=== PATIENT | female | born 1955 | race Caucasian/White ===

== ENCOUNTER 2020-02-01 14:28 | Outpatient (CLI) | payer BC, SELFPAY ==
--- NOTE | ~2020-02-01 | MM_ITS ---
EXAMINATION: MM screening yanely BI w berna HISTORY: Screening mammogram, family history of breast cancer in her sister. TECHNIQUE: Craniocaudal and mediolateral oblique 3-D tomosynthesis images were obtained and synthetic 2-D images were generated. CAD analysis was submitted and interpreted. COMPARISON: 01/13/2019, 12/31/2017, 12/26/2016 BREAST PARENCHYMAL COMPOSITION: There are scattered areas of fibroglandular density. FINDINGS: There is no evidence of suspicious mass, calcification, or architectural distortion to sugg est malignancy in either breast. There has been no suspicious interval change. IMPRESSION: 1. No mammographic evidence of malignancy. 2. Recommend routine screening mammography in one year. BI-RADS Category 1: Negative Reviewed, dictated and finalized at location A. 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
== END 2020-02-01 14:29 | disposition home or self-care (01) ==
LOC: ANHIMG 14:31
PROVIDERS: PCP Physician Assistant; Visit Provider Physician Assistant
DX: Z12.31 Encounter for screening mammogram for malignant neoplasm of breast (principal)
CPT/HCPCS: 77063; 77067

== ENCOUNTER 2021-03-14 16:40 | Outpatient (CLI) | payer OTHER, SELFPAY ==
--- NOTE | ~2021-03-14 | MM_ITS ---
EXAMINATION: MM screening yanely BI w berna HISTORY: Screening mammogram, family history of breast cancer in her sister. TECHNIQUE: Craniocaudal and mediolateral oblique 3-D tomosynthesis images were obtained and synthetic 2-D images were generated. CAD analysis was submitted and interpreted. COMPARISON: 02/01/2020, 01/13/2019, 12/31/2017 BREAST PARENCHYMAL COMPOSITION: There are scattered areas of fibroglandular density. FINDINGS: There is no evidence of suspicious mass, calcification, or architectural distortion to sugg est malignancy in either breast. There has been no suspicious interval change. IMPRESSION: 1. No mammographic evidence of malignancy. 2. Recommend routine screening mammography in one year. BI-RADS Category 1: Negative Reviewed, dictated and finalized at location A. 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
== END 2021-03-14 16:41 | disposition home or self-care (01) ==
DX: Z12.31 Encounter for screening mammogram for malignant neoplasm of breast (principal)
CPT/HCPCS: 77063; 77067

== ENCOUNTER 2021-07-26 00:52 | Day surgery (SDC) | payer OTHER, SELFPAY ==
[2021-07-09 15:00] VITALS: BMI 27.8
--- NOTE | 2021-07-26 11:18 | PM.HPGS ---
History of Present Illness History of Present Illness Consent: Risks, benefits, and alternatives have been discussed and questions answered. Patient agrees to proceed with procedure. Chief complaint: neoplasm screening Narrative: Lelia Elise is a 66 year old female Who is referred for colon cancer screening. She also has gastroesophageal reflux symptoms, with burning it begins in the epigastric area and comes up her chest. This is usually after meal. She has been taking a PPI which has helped but she stopped it so that we could examine her digestive tract without the medication on board. She had a CT scan that showed gallstones. Review of Systems Review of Systems: All systems reviewed & are unremarkable except as noted in HPI and below PMFSH Past Medical History Medical History Hypothyroidism Overweight Surgical History Surgical History H/O laparoscopy H/O lumbosacral spine surgery Social History Social History Smoking status: Never smoker Alcohol intake: never Substance use: never Substance use type: does not use Living arrangements: alone Spiritual care concerns: No Meds Home Medications and Allergies Home Medications Medication Instructions Recorded Confirmed Type cholecalciferol (vitamin D3) 125 125 mcg PO DAILY 07/02/21 07/09/21 History mcg (5,000 unit) capsule naproxen sodium 220 mg capsule 220 mg PO BID PRN 07/02/21 07/09/21 History turmeric (bulk) 95 % powder 1 ea MISCELLANEOUS DAILY PRN 07/02/21 07/09/21 History zinc gluconate 50 mg tablet 50 mg PO DAILY 07/02/21 07/09/21 History estradiol 1 packet TOPICAL DAILY 07/09/21 07/09/21 History levothyroxine 50 mcg PO DAILY 07/09/21 07/09/21 History Allergies Allergy/AdvReac Type Severity Reaction Status Date / Time codeine Allergy Unknown Unknown Verified 07/26/21 11:35 Exam Const: General: alert Orientation/consciousness: patient oriented x3 Resp: Auscultation: clear to auscultation bilaterally Cardio: Rhythm: regular rhythm GI: GI Palp: Yes Soft to palpation and No Tenderness to palpation present (GI) Neuro: General: patient oriented x3 Assessment and Plan Assessment and plan (1) Encounter for colorectal cancer screening: Code(s): Z12.11 - Encounter for screening for malignant neoplasm of colon; Z12.12 - Encounter for screening for malignant neoplasm of rectum Status: Acute Assessment and Plan: Colonoscopy with possible biopsy or polypectomy or cautery or injection of substances. (2) GERD (gastroesophageal reflux disease): Code(s): K21.9 - Gastro-esophageal reflux disease without esophagitis Status: Acute Assessment and Plan: EGD with possible biopsy or dilatation or cautery.
--- NOTE | 2021-07-26 11:27 | WPDANESEPPF ---
Anes - Initial Pre Proc Eval Procedure: Operation Date: 07/26/21 12:30 Proposed Procedures p Esophagogastroduodenoscopy & Screening Colonoscopy - Alex Gerber MD Date/Time: 07/26/21 11:27 Surgeon: Alex Gerber MD Pre Op Diagnosis: neoplasm screening Patient Data Age: 66 Gender: F Height: 1.63 m Weight: 73.5 kg Allergies Allergy/AdvReac Type Severity Reaction Status Date / Time codeine Allergy Unknown Unknown Verified 07/09/21 15:17 Home Medications Medication Instructions Recorded Confirmed Type cholecalciferol (vitamin D3) 125 125 mcg PO DAILY 07/02/21 07/09/21 History mcg (5,000 unit) capsule naproxen sodium 220 mg capsule 220 mg PO BID PRN 07/02/21 07/09/21 History turmeric (bulk) 95 % powder 1 ea MISCELLANEOUS DAILY PRN 07/02/21 07/09/21 History zinc gluconate 50 mg tablet 50 mg PO DAILY 07/02/21 07/09/21 History estradiol 1 packet TOPICAL DAILY 07/09/21 07/09/21 History levothyroxine 50 mcg PO DAILY 07/09/21 07/09/21 History Patient hx anesthesia problems: none Family hx anesthesia problems: none Results Review: All pre-operative results and documents have been reviewed as part of the pre-operative evaluation. [facility] Past Medical History Medical History (Updated 07/26/21 @ 11:27 by Pawel Olivares MD) Hypothyroidism Overweight Surgical History Surgical History (Updated 07/26/21 @ 11:28 by Pawel Olivares MD) H/O laparoscopy H/O lumbosacral spine surgery Social History Social History Smoking status: Never smoker Alcohol intake: never Substance use: never Substance use type: does not use Living arrangements: alone Spiritual care concerns: No Anes - Eval Final PreProcedure Day of Procedure 07/26/21 11:27 Patient weight: overweight Heart: regular rate and rhythm Lungs: clear to auscultation Airway: Mallampati scale class II Neurological: alert and oriented Last oral intake: >/= 8 hours ASA classification: II Emergent: no Anesthetic plan: proceed Anesthesia type and monitoring: general GIVS and standard monitoring Results Review: All pre-operative results and documents have been reviewed as part of the pre-operative evaluation. Informed Consent: The patient's anesthetic plan and its attendant risks and benefits were discussed with the patient/family/POA. Questions were solicited and answers provided to the satisfaction of the patient/family/POA.
[2021-07-26 11:37] VITALS: BP 124/61; PULSE 82; RESP 18; TEMP 36.1; O2SAT 99
[2021-07-26] MEDS: LACTATED RINGERS 1,000 ML 150 ML IV CONT (11:38)
--- NOTE | 2021-07-26 12:32 | SUR.OPER ---
EGD: [id number] COLON: [id number]
[2021-07-26 13:02] VITALS: BP 102/65; PULSE 83; RESP 18; O2SAT 99
[2021-07-26 13:12] VITALS: BP 117/79; PULSE 75; RESP 20; O2SAT 94
[2021-07-26 13:50] VITALS: BP 108/63; PULSE 77; RESP 21; O2SAT 98
--- NOTE | 2021-07-26 13:52 | SUR.PHASEII ---
Dr. Gerber notified that hpylori test result was positive on 07/26/21 at 1352 by Amparo Leslie RN
== END 2021-07-26 13:53 | disposition home or self-care (01) ==
PROVIDERS: Visit Provider Internal Medicine Gastroenterology
PROC: 0DJ08ZZ Inspection of Upper Intestinal Tract, Via Natural or Artificial Opening Endoscopic (ICD-10-PCS; CPT 43235; principal; 2021-07-26 12:30)
DX: Z12.11 Encounter for screening for malignant neoplasm of colon (principal); K21.00 Gastro-esophageal reflux disease with esophagitis, without bleeding; K25.9 Gastric ulcer, unspecified as acute or chronic, without hemorrhage or perforation; B96.81 Helicobacter pylori [H. pylori] as the cause of diseases classified elsewhere; E03.9 Hypothyroidism, unspecified
CPT/HCPCS: 45378; 43239; 87081; 88305; 88342; J2704; J7120

== ENCOUNTER 2021-11-07 11:09 | Day surgery (SDC) | payer OTHER, SELFPAY ==
[2021-10-24 13:44] VITALS: BMI 27.3
--- NOTE | 2021-11-06 12:19 | WPDANESEPPF ---
Anes - Initial Pre Proc Eval Procedure: Operation Date: 11/07/21 13:00 Proposed Procedures p Esophagogastroduodenoscopy - Alex Gerber MD Date/Time: 11/06/21 12:19 Surgeon: Alex Gerber MD Pre Op Diagnosis: Gastric Ulcer and Esophagitis Patient Data Age: 66 Gender: F Height: 1.6 m Weight: 70 kg Allergies Allergy/AdvReac Type Severity Reaction Status Date / Time codeine Allergy Severe Hives Verified 11/07/21 11:41 Home Medications Medication Instructions Recorded Confirmed Type cholecalciferol (vitamin D3) 125 125 mcg PO DAILY 07/02/21 10/24/21 History mcg (5,000 unit) capsule naproxen sodium 220 mg capsule 220 mg PO BID PRN Muscle Pain 07/02/21 11/07/21 History (Aleve) turmeric (bulk) 95 % powder 1 ea miscellaneous DAILY PRN 07/02/21 10/24/21 History (Curcumin) Muscle Pain zinc gluconate 50 mg tablet 50 mg PO DAILY 07/02/21 10/24/21 History estradiol 1.25 mg/1.25 gram (0.1 1 packet topical DAILY 07/09/21 10/24/21 History %) transdermal gel packet levothyroxine 50 mcg tablet 50 mcg PO DAILY 07/09/21 10/24/21 History omeprazole 40 mg capsule,delayed 40 mg PO BID #60 caps 07/26/21 10/24/21 Rx release Patient hx anesthesia problems: none Family hx anesthesia problems: none Results Review: All pre-operative results and documents have been reviewed as part of the pre-operative evaluation. [facility] Past Medical History Medical History (Updated 11/06/21 @ 16:42 by Alex Gerber MD) GERD (gastroesophageal reflux disease) Hypothyroidism Osteoarthritis Overweight Surgical History Surgical History (Updated 11/06/21 @ 12:19 by Stanton Castillo DO) H/O laparoscopy H/O lumbosacral spine surgery History of tubal ligation Social History Social History Smoking status: Never smoker Alcohol intake: never Substance use: never Substance use type: does not use Living arrangements: alone Spiritual care concerns: No Anes - Eval Final PreProcedure Day of Procedure 11/06/21 12:19 Patient weight: overweight Heart: regular rate and rhythm Lungs: clear to auscultation Airway: Mallampati scale class III Neurological: alert and oriented Last oral intake: >/= 8 hours ASA classification: II Emergent: no Anesthetic plan: proceed Anesthesia type and monitoring: general GIVS and standard monitoring Results Review: All pre-operative results and documents have been reviewed as part of the pre-operative evaluation. Informed Consent: The patient's anesthetic plan and its attendant risks and benefits were discussed with the patient/family/POA. Questions were solicited and answers provided to the satisfaction of the patient/family/POA.
--- NOTE | 2021-11-06 16:41 | PM.HPGS ---
History of Present Illness History of Present Illness Consent: Risks, benefits, and alternatives have been discussed and questions answered. Patient agrees to proceed with procedure. Chief complaint: Gastric Ulcer and Esophagitis Narrative: Lelia Elise is a 66 year old female here for follow-up of ulcers. In July of this year she was found to have multiple gastric ulcers and ulcerations and erosions in the distal esophagus. She has been taking omeprazole 40 mg twice a day. Review of Systems Review of Systems: All systems reviewed & are unremarkable except as noted in HPI and below PMFSH Past Medical History Medical History GERD (gastroesophageal reflux disease) Hypothyroidism Osteoarthritis Overweight Surgical History Surgical History H/O laparoscopy H/O lumbosacral spine surgery History of tubal ligation Social History Social History Smoking status: Never smoker Alcohol intake: never Substance use: never Substance use type: does not use Living arrangements: alone Spiritual care concerns: No Meds Home Medications and Allergies Home Medications Medication Instructions Recorded Confirmed Type cholecalciferol (vitamin D3) 125 125 mcg PO DAILY 07/02/21 10/24/21 History mcg (5,000 unit) capsule naproxen sodium 220 mg capsule 220 mg PO BID PRN Muscle Pain 07/02/21 11/07/21 History (Aleve) turmeric (bulk) 95 % powder 1 ea miscellaneous DAILY PRN 07/02/21 10/24/21 History (Curcumin) Muscle Pain zinc gluconate 50 mg tablet 50 mg PO DAILY 07/02/21 10/24/21 History estradiol 1.25 mg/1.25 gram (0.1 1 packet topical DAILY 07/09/21 10/24/21 History %) transdermal gel packet levothyroxine 50 mcg tablet 50 mcg PO DAILY 07/09/21 10/24/21 History omeprazole 40 mg capsule,delayed 40 mg PO BID #60 caps 07/26/21 10/24/21 Rx release Allergies Allergy/AdvReac Type Severity Reaction Status Date / Time codeine Allergy Severe Hives Verified 11/07/21 11:41 Exam Const: General: alert Orientation/consciousness: patient oriented x3 Resp: Auscultation: clear to auscultation bilaterally Cardio: Rhythm: regular rhythm GI: GI Palp: Yes Soft to palpation and No Tenderness to palpation present (GI) Neuro: General: patient oriented x3 Assessment and Plan Assessment and plan (1) Gastric ulcer: Code(s): K25.9 - Gastric ulcer, unspecified as acute or chronic, without hemorrhage or perforation Status: Acute Assessment and Plan: EGD with possible biopsy or dilatation or cautery.
[2021-11-07 11:48] VITALS: BP 134/93; PULSE 67; RESP 16; TEMP 37.1; O2SAT 99; BMI 29.0
[2021-11-07] MEDS: LACTATED RINGERS 1,000 ML 150 ML IV CONT (12:03)
[2021-11-07 13:16] VITALS: BP 106/73; PULSE 71; RESP 16; O2SAT 99
[2021-11-07 13:26] VITALS: BP 124/77; PULSE 77; RESP 16; O2SAT 96
[2021-11-07 13:36] VITALS: BP 136/87; PULSE 79; RESP 20; O2SAT 98
--- NOTE | 2021-11-07 14:38 | WPDANESPN ---
Anes - Prog Note Post-Op Date/Time: 11/07/21 14:38 Cardiovascular status: normal Respiratory status: normal Airway patency: baseline Mental status: baseline Post-Op hydration status: normal Vital Signs: Last Vital Signs Temp 37.1 C 11/07/21 11:48 Pulse 79 11/07/21 13:36 Resp 20 11/07/21 13:36 BP 136/87 11/07/21 13:36 Pulse Ox 98 11/07/21 13:36 O2 Del Method Room Air 11/07/21 13:36 Pain Score (VAS): 0 I/O: Intake & Output 11/06/21 11/07/21 11/07/21 23:59 07:59 15:59 Intake Total 400 Balance 400 Post-procedural complaints: none Patient Feedback: Patient satisfied with anesthetic care. Other Findings: Patient vital signs back to baseline. Patient denies nausea and vomiting. Patient's pain under control. Patient OK for discharge.
== END 2021-11-07 13:50 | disposition home or self-care (01) ==
PROVIDERS: Visit Provider Internal Medicine Gastroenterology
PROC: 0DJ08ZZ Inspection of Upper Intestinal Tract, Via Natural or Artificial Opening Endoscopic (ICD-10-PCS; CPT 43235; principal; 2021-11-07 13:00)
DX: K25.9 Gastric ulcer, unspecified as acute or chronic, without hemorrhage or perforation (principal)
CPT/HCPCS: 43235

== ENCOUNTER 2022-03-18 16:21 | Outpatient (CLI) | payer OTHER, SELFPAY ==
--- NOTE | ~2022-03-18 | MM_ITS ---
EXAMINATION: MM screening yanely BI w berna HISTORY: Screening mammogram, family history of breast cancer in her sister. TECHNIQUE: Craniocaudal and mediolateral oblique 3-D tomosynthesis images were obtained and synthetic 2-D images were generated. CAD analysis was submitted and interpreted. COMPARISON: 03/14/2021, 02/01/2020, 01/13/2019 BREAST PARENCHYMAL COMPOSITION: There are scattered areas of fibroglandular density. FINDINGS: No suspicious mass, calcification, or architectural distortion are identified in either jaclyn ast to suggest malignancy. There has been no suspicious interval change. IMPRESSION: 1. No mammographic evidence of malignancy. 2. Recommend routine screening mammography in one year. BI-RADS Category 1: Negative Reviewed, dictated and finalized at location A. 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
== END 2022-03-18 16:22 | disposition home or self-care (01) ==
DX: Z12.31 Encounter for screening mammogram for malignant neoplasm of breast (principal)
CPT/HCPCS: 77063; 77067

== ENCOUNTER → 2022-11-03 11:10 | Outpatient (CLI) | payer MEDICARE, OTHER, SELFPAY ==
--- NOTE | ~2022-11-03 | US_ITS ---
EXAMINATION: US pelvic complete DATE: 11/03/2022 11:47 INDICATION: Hormone replacement therapy. Estrogen therapy.. Comparison:No prior studies for comparison. TECHNIQUE: Multiple transabdominal and endovaginal sonographic images of the pelvis performed. FINDINGS: The uterus measures 8.7 x 4.1 x 5 cm. The endometrial complex measures 5 mm. The right ovary measures 1.7 x 1.9 x 0.9 cm and the left ovary measures 2.7 x 2.4 x 1.1 cm. There ar e small follicles in each ovary. Normal doppler signal in both ovaries. There is no free fluid in the pelvis. There are no abnormal masses seen on either side. IMPRESSION: 1. Unremarkable pelvic ultrasound. Reviewed, dictated and finalized at location B.
== END ==
PROVIDERS: PCP Advanced Practice Midwife; Visit Provider Advanced Practice Midwife
DX: Z79.890 Hormone replacement therapy (principal)
CPT/HCPCS: 76856

== ENCOUNTER 2023-01-30 00:41 | Day surgery (SDC) | payer MEDICARE, OTHER, SELFPAY ==
[2023-01-23 14:53] VITALS: BMI 28.3
--- NOTE | 2023-01-23 14:58 | PC.NURSE ---
Report to the Outpatient Waiting Room, entrance under the green pavilion located off [facility], at time _0830_ on date _[id number]_. Planned Procedure Time: _1030_. Time changes happen often and if your time is changed the preop area will call you the afternoon before. - You and your visitor will be asked to self-screen and do not enter if you have any COVID symptoms. - A mask is optional within the hospital at this time. Patients may have clear liquids (water, carbonated beverages, clear teas, apple juice) until 3 hours prior to surgery with a maximum of 20 ounces. - No food from midnight until time of surgery Take the following medications with a SIP of water the morning of surgery: ___Levothyroxine DO NOT STOP ANY OF YOUR OTHER PRESCRIPTION MEDICATIONS PRIOR TO SURGERY ?EXCEPT THE FOLLOWING Medications to discontinue per physician All vitamins and supplements Date to take last [id number] Please no make-up, nail french, hairspray, perfume, deodorant, or body powder the day of surgery. No jewelry (including any body piercings) or valuables the day of surgery, leave them at home. Please take a shower or bath the night before, or the morning of, surgery with an antibacterial soap. Wear comfortable, loose fitting clothing. - Jewelry must be removed prior to entering the operating room. Rings and piercings that are not removed may be cut off. - The hospital will not accept responsibility for valuables. - Please leave all valuables, including medications, at home the day of surgery. If you are going home after surgery, a licensed deliver driver must drive you home. - NO public transportation without another adult if you receive anesthesia. - We recommend that an adult stay with you for 24 hours following discharge. - We also recommend that you do not drive, make important decision, drink alcoholic beverages, or take any drugs that were not prescribed by your health care provider for at least 24 hours after your discharge time. Follow any additional instructions given to you from your surgeon. If you or anyone in your household have experienced Covid symptoms in the past week, please notify your surgeon or the nurse liaison at the phone number below for possible testing. Telephone instructions given to __Lelia__and asked if any additional questions and then verbalized understanding. Patient advised to call surgeon office or pre surgery nurse liaison [phone] if any additional questions.
--- NOTE | 2023-01-29 12:44 | PM.IMHP ---
H&P: HPI History of Present Illness Date/Time: 01/29/23 12:44 Chief Complaint: Thickened endometrial stripe Narrative: Patient is a 67-year-old female who was on hormone replacement therapy with unopposed estrogen and findings of a mildly thickened endometrial stripe. Unable to perform office endometrial biopsy due to stenotic os. Patient opted for D and C hysteroscopy. Review of Systems Review of Systems: All systems reviewed & are unremarkable except as noted in HPI and below Cardiovascular: Cardiovascular: Reports no additional cardiovascular complaints, Denies chest pain and Denies dyspnea Respiratory: Respiratory: Reports no additional respiratory complaints and Denies dyspnea Gastrointestinal: Gastrointestinal: Reports abdominal pain, Denies change in bowel habits, Denies diarrhea, Denies nausea and Denies vomiting Genitourinary: Genitourinary: Reports pelvic pain Musculoskeletal: Musculoskeletal: Reports back pain Integumentary/Breasts: Skin/Breast: Reports system reviewed and no additional complaints, except as docu Neurologic: Reports system reviewed and no additional complaints, except as documented PMFSH Past Medical History Medical History GERD (gastroesophageal reflux disease) Hypothyroidism Osteoarthritis Overweight Surgical History Surgical History H/O laparoscopy H/O lumbosacral spine surgery History of tubal ligation Family History Family History Sibling Diabetes mellitus Breast cancer Social History Social History Smoking status: Never smoker Alcohol intake: never Substance use: never Substance use type: does not use Lack of Transportation: No Lack of Food: Never True Current Housing: I Have Housing Concerned About Future Housing: No Difficulty Paying Gas/Electric Bills: No Difficulty Paying for Meds: No Currently Unemployed: No Difficulty w/ Childcare or Family Care: No Living arrangements: with family Gender identity (if verbalized by the patient): Female Sexual Orientation (if Verbalized by the Patient): Straight or Heterosexual Spiritual care concerns: No Meds Home Medications and Allergies Home Medications Medication Instructions Recorded Confirmed Type cholecalciferol (vitamin D3) 125 125 mcg PO DAILY 07/02/21 01/23/23 History mcg (5,000 unit) capsule naproxen sodium 220 mg capsule 220 mg PO BID PRN Muscle Pain 07/02/21 01/23/23 History (Aleve) turmeric (bulk) 95 % powder 1 ea miscellaneous DAILY PRN 07/02/21 01/23/23 History (Curcumin) Muscle Pain zinc gluconate 50 mg tablet 50 mg PO DAILY 07/02/21 01/23/23 History estradiol 1.25 mg/1.25 gram (0.1 1 packet topical DAILY 07/09/21 01/23/23 History %) transdermal gel packet levothyroxine 50 mcg tablet 50 mcg PO DAILY 07/09/21 01/23/23 History omeprazole 40 mg capsule,delayed 40 mg PO DAILY #90 caps 11/24/22 01/23/23 Rx release Allergies Allergy/AdvReac Type Severity Reaction Status Date / Time codeine Allergy Severe Hives Verified 01/23/23 14:52 Exam Const: Orientation/consciousness: oriented to person and oriented to place HENMT: Head: normal to inspection Eyes: General: appearance normal, both eyes and all related structures Resp: Effort & Inspection: normal respiratory effort Auscultation: clear to auscultation bilaterally Cardio: Rate: regular rate Rhythm: regular rhythm GI: Inspection: normal to inspection GI Palp: No Rebound tenderness present Neuro: General: oriented to person and oriented to place Cognition (Neuro): normal cognition Extrem: General: normal to inspection Psych: Appearance: grossly normal and well kempt Assessment and Plan Assessment and plan (1) Thickened endometrium: Code(s): R93.89 - A
[2023-01-30 09:53] VITALS: BP 116/80; PULSE 71; RESP 20; TEMP 36.5; O2SAT 100
--- NOTE | 2023-01-30 10:17 | WPDHPUPDATE1 ---
History and Physical Update Update Date/Time: 01/30/23 10:17 History and Physical has been reviewed, including an updated exam of the patient. There are NO changes in the patient's condition. Risks, benefits, and alternatives have been discussed and questions answered. Patient agrees to proceed with procedure.
--- NOTE | 2023-01-30 10:19 | WPDANESEPPF ---
Anes - Initial Pre Proc Eval Procedure: Operation Date: 01/30/23 11:30 Proposed Procedures p Hysteroscopy Dilation and Curettage Removal of any Endometrial Lesion if Necessary - Hiram Candelario MD Date/Time: 01/30/23 10:19 Surgeon: Hiram Candelario MD Pre Op Diagnosis: thickened endometrial stripe Patient Data Age: 67 Gender: F Height: 1.6 m Weight: 72.7 kg Allergies Allergy/AdvReac Type Severity Reaction Status Date / Time codeine Allergy Severe N/V Verified 01/30/23 09:56 Home Medications Medication Instructions Recorded Confirmed Type cholecalciferol (vitamin D3) 125 125 mcg PO DAILY 07/02/21 01/30/23 History mcg (5,000 unit) capsule naproxen sodium 220 mg capsule 220 mg PO BID PRN Muscle Pain 07/02/21 01/23/23 History (Aleve) turmeric (bulk) 95 % powder 1 ea miscellaneous DAILY PRN 07/02/21 01/30/23 History (Curcumin) Muscle Pain zinc gluconate 50 mg tablet 50 mg PO DAILY 07/02/21 01/30/23 History estradiol 1.25 mg/1.25 gram (0.1 1 packet topical DAILY 07/09/21 01/30/23 History %) transdermal gel packet levothyroxine 50 mcg tablet 50 mcg PO DAILY 07/09/21 01/30/23 History omeprazole 40 mg capsule,delayed 40 mg PO DAILY #90 caps 11/24/22 01/30/23 Rx release Patient hx anesthesia problems: none Family hx anesthesia problems: none Results Review: All pre-operative results and documents have been reviewed as part of the pre-operative evaluation. [facility] Past Medical History Medical History GERD (gastroesophageal reflux disease) Hypothyroidism Osteoarthritis Overweight Surgical History Surgical History H/O laparoscopy H/O lumbosacral spine surgery History of tubal ligation Family History Family History Sibling Diabetes mellitus Breast cancer Social History Social History Smoking status: Never smoker Alcohol intake: never Substance use: never Substance use type: does not use Lack of Transportation: No Lack of Food: Never True Current Housing: I Have Housing Concerned About Future Housing: No Difficulty Paying Gas/Electric Bills: No Difficulty Paying for Meds: No Currently Unemployed: No Difficulty w/ Childcare or Family Care: No Living arrangements: with family Gender identity (if verbalized by the patient): Female Sexual Orientation (if Verbalized by the Patient): Straight or Heterosexual Spiritual care concerns: No Anes - Eval Final PreProcedure Day of Procedure 01/30/23 10:19 Patient weight: overweight Heart: regular rate and rhythm Lungs: clear to auscultation Airway: Mallampati scale class II Neurological: alert and oriented Last oral intake: >/= 8 hours Emergent: no Anesthetic plan: proceed Anesthesia type and monitoring: general GIVS and standard monitoring Results Review: All pre-operative results and documents have been reviewed as part of the pre-operative evaluation. Informed Consent: The patient's anesthetic plan and its attendant risks and benefits were discussed with the patient/family/POA. Questions were solicited and answers provided to the satisfaction of the patient/family/POA.
[2023-01-30] MEDS: LACTATED RINGERS 1,000 ML 30 ML IV CONT (10:20)
[2023-01-30] MEDS: ACETAMINOPHEN 500 MG TABLET 1000 MG PO (10:20)
[2023-01-30] MEDS: ceFAZolin 2 GM/D5W 50 ML 2 GM/50 ML BAG IVPB (10:56)
[2023-01-30] MEDS: LIDOCAINE HCL 1% PF INJ 5 ML VIAL 10 ML INFILTRATE (11:10)
[2023-01-30 11:21] VITALS: BP 112/69; PULSE 68; RESP 17
--- NOTE | 2023-01-30 11:23 | P.OP_ITS ---
Procedure Note - Detailed Date of Procedure 01/30/23 Pre-op Diagnosis thickened endometrial stripe, history of unopposed estrogen use Post-op Diagnosis Same Procedure Performed Hysteroscopy dilation and curettage and sampling of abnormal area in the uterus Surgeon Hiram Candelario MD Anesthesia MAC and Local Indications Thickened endometrial stripe Findings Small area of thickened tissue in the circular shaped at the posterior wall of lower uterine cavity the rest of the tissue and cavity were atrophic. Description of Procedure After form consent was obtained patient was taken to the operating room and ad equate IV sedation was administered. She was placed in high lithotomy position and prepped and draped in sterile fashion. Attention was turned to the vagina. Speculum inserted. Single-tooth tenaculum placed on anterior lip of the cervix. 1% lidocaine was injected at the cervical vaginal interface at 2, 5, 8 and 10 position. The cervix was noted to be very stenotic. The smallest dilator would not dilate the cervix. Several os Finders were then used and the medium os binder was able to enter the cervical canal. A small Macdonald dilator was then inserted further. The hysteroscope was then used for hydro dilation to advance up into the uterine cavity. Most the cavity appeared atrophic. There was a small area or that appear to have thickened circular area at the posterior wall of the lower uterine cavity. The Mindy instrument was used to shave off this area which it did shave it off completely and then a curettage was then performed and there was minimal tissue obtained. The single-tooth tenaculum was removed. Hemostasis was noted. The speculum was removed. The patient tolerated procedure well. Estimated Blood Loss 5 Drains No Packing No Pathology Yes ( Scant endometrial curettings and shavings) Complications No immediate complications Condition Stable Disposition PACU [facility] Billing Surgery - Charge Forward: Surgery Billing
[2023-01-30 11:45] VITALS: BP 132/73; PULSE 75; RESP 17
[2023-01-30 12:15] VITALS: BP 114/70; PULSE 66; RESP 16
[2023-01-30 12:35] VITALS: BP 121/77; PULSE 63; RESP 16
== END 2023-01-30 12:55 | disposition home or self-care (01) ==
PROVIDERS: PCP Advanced Practice Midwife; Visit Provider Obstetrics & Gynecology
PROC: 0U5B8ZZ Destruction of Endometrium, Via Natural or Artificial Opening Endoscopic (ICD-10-PCS; CPT 58563; principal; 2023-01-30 11:30)
DX: N85.01 Benign endometrial hyperplasia (principal); K21.9 Gastro-esophageal reflux disease without esophagitis; E03.9 Hypothyroidism, unspecified
CPT/HCPCS: 58558; 88305; A9270; J0690; J2250; J2704; J3010; J7120

== ENCOUNTER → 2023-03-02 11:57 | Outpatient (CLI) | payer MEDICARE, OTHER, SELFPAY ==
--- NOTE | ~2023-03-02 | DEXA_ITS ---
Bone Density Report Name: NICOLE LEONARDO Age: 67 Sex: Female Ethnicity: White Date of : 1955 Indication: postmenopausal; screening for osteoporosis; Referring Provider: TERRY, PATI Moore Study: Bone densitometry was performed. Exam Date: March 02, 2023 Accession number: [id number] Bone Density: Region BMD T-score Z-score Classification AP Spine (L1-L4) 1.079 0.3 2.1 Normal Femoral Neck (Left) 0.730 -1.1 0.5 Osteopenia Total Hip (Left) 0.896 -0.4 0.9 Normal Femoral Neck (Right) 0.707 -1.3 0.3 Osteopenia Total Hip (Right) 0.826 -0.9 0.3 Normal Total Hip Mean 0.861 -0.7 0.6 Normal World Health Organization criteria for BMD impression classify patients as: Normal (T-score at or above -1.0), Osteopenia (T-score between -1.0 and -2.5), or Osteoporosis (T-score at or below -2.5). 10-year Fracture Risk(1): Major Osteoporotic Fracture 8.4% Hip Fracture 0.8% Reported Risk Factors: [place] (), Neck BMD=0.707, BMI=29.1 (1) FRAX(R) Version 3.08. Fracture probability calculated for an untreated patient. Fracture probability may be lower if the patient has received treatment. Clinical Information Provided by Patient: Has used the following medications: HRT (i.e. estrogen/hormone therapy), Vitamin D, LEVOTHYROXINE Patient maximum height was 63.5 Menopause Age: 57 Onset of menses at age 15 Number of children 2 Impression: The patient has low bone mass, based on the Right Femoral Neck T-score. The patient has an estimated ten-year risk of hip fracture of 0.8% and an estimated ten-year risk of major fracture of 8.4%, based on the WHO FRAX algorithm. Discussion: BONE DENSITY IS LOW AT ONE OR MORE SKELETAL SITES. This patient's lowest T-score is low at one or more skeletal sites. It meets the World Health Organization's (WHO) criteria for ?low bone mass? (T-score between -1.0 and -2.5). The patient's 10-year risk of fracture as calculated by FRAX is less than the threshold where pharmacological therapy is recommended by the National Osteoporosis Foundation (NOF). However, all treatment decisions require clinical judgment and consideration of individual patient factors, including patient preferences, comorbidities, previous drug use, risk factors not captured in the FRAX model (e.g., frailty, falls, vitamin D deficiency, increased bone turnover, interval significant decline in bone density) and possible under or overestimation of fracture risk by FRAX. The patient should follow a healthful lifestyle (good nutrition with adequate calcium and vitamin D, and appropriate weight-bearing exercise). Follow-Up: Consider repeating this study in 2 to 3 years to reassess this patient's status, or sooner if there is some new clinical indication. Reported by: WILIAN on 03/02/2023 12:47:00 PM.
== END ==
PROVIDERS: PCP Advanced Practice Midwife; Visit Provider Advanced Practice Midwife
DX: Z78.0 Asymptomatic menopausal state (principal); M85.852 Other specified disorders of bone density and structure, left thigh; M85.851 Other specified disorders of bone density and structure, right thigh
CPT/HCPCS: 77080

== ENCOUNTER 2023-07-03 10:45 | Outpatient (CLI) | payer MEDICARE, OTHER, SELFPAY ==
--- NOTE | ~2023-07-03 | MM_ITS ---
EXAMINATION: MM screening yanely BI w berna HISTORY: Screening TECHNIQUE: Craniocaudal and mediolateral oblique 3-D tomosynthesis images were obtained and synthetic 2-D images were generated. CAD analysis was submitted and interpreted. COMPARISON: Comparison to multiple prior studies sequentially, with oldest reviewed study dated 01/14. BREAST PARENCHYMAL COMPOSITION: Not dense: There are scattered areas of fibroglandular density. FINDINGS: There is no evidence of suspicious mass, calcification, or architectural distortion to sugg est malignancy in either breast. There has been no suspicious interval change. IMPRESSION: 1. No mammographic evidence of malignancy. 2. Recommend routine screening mammography in one year. BI-RADS Category 1: Negative Reviewed, dictated and finalized at location B.
== END 2023-07-03 10:46 ==
PROVIDERS: PCP Nurse Practitioner Obstetrics & Gynecology; Visit Provider Advanced Practice Midwife
DX: Z12.31 Encounter for screening mammogram for malignant neoplasm of breast (principal)
CPT/HCPCS: 77063; 77067

== ENCOUNTER 2023-07-20 10:15 | Outpatient (CLI) | payer MEDICARE, OTHER, SELFPAY ==
--- NOTE | ~2023-07-20 | US_ITS ---
EXAMINATION: US thyroid DATE: 07/20/2023 10:31 INDICATION: Hypothyroidism. TECHNIQUE: Multiple ultrasound images of the thyroid were obtained. COMPARISON: None. FINDINGS: The right thyroid lobe measures 3.7 x 1.0 x 1.4 cm. The left thyroid lobe measures 4.4 x 1.2 x 1.5 c m. In the left thyroid lobe, there is a 2.2 cm solid, isoechoic, wider than tall nodule with ill-def ined margin without echogenic foci (TI-RADS TR3). IMPRESSION: 1. Left thyroid nodule. Thyroid ultrasound is recommended in one year. Reviewed, dictated and finalized at location A.
== END 2023-07-20 10:16 ==
LOC: MICIMG 10:17
PROVIDERS: PCP Physician Assistant; Visit Provider Physician Assistant
DX: E03.9 Hypothyroidism, unspecified (principal); E04.1 Nontoxic single thyroid nodule
CPT/HCPCS: 76536

== ENCOUNTER 2023-08-26 11:08 | Outpatient (CLI) | payer MEDICARE, OTHER, SELFPAY ==
--- NOTE | ~2023-08-26 | XR_ITS ---
EXAMINATION: XR chest 2V 08/26/2023 11:20 INDICATION: Dyspnea PROCEDURE: 2 view chest COMPARISON: No prior studies for comparison. FINDINGS: The lungs are clear. The cardiomediastinal silhouette is within normal limits. There are no pleural effusions. There is no pneumothorax suspected. IMPRESSION: 1: NO ACUTE CARDIOPULMONARY DISEASE. Reviewed, dictated and finalized at location B.
== END 2023-08-26 11:09 ==
PROVIDERS: PCP Physician Assistant; Visit Provider Physician Assistant
DX: R06.09 Other forms of dyspnea (principal)
CPT/HCPCS: 71046

== ENCOUNTER 2023-09-01 08:15 | Outpatient (CLI) | payer MEDICARE, OTHER, SELFPAY ==
--- NOTE | ~2023-09-01 | US_ITS ---
EXAMINATION: US abdomen complete DATE: 09/01/2023 08:46 INDICATION: Epigastric abdominal pain. TECHNIQUE: Multiple grayscale and Doppler ultrasound images of the abdomen were obtained. COMPARISON: None FINDINGS: The visualized portions of the head and body of the pancreas are normal. The liver is kerry l without focal lesion. There is normal flow in main portal vein. The gallbladder is normal in size c ontains gallstones. No gallbladder wall thickening or sonographic Hidalgo sign. The common duct is nor mal and measures 7 mm. The kidneys are normal in size. The spleen is normal in size. Inferior vena ca va is normal. Abdominal aorta is normal in caliber. IMPRESSION: 1. Cholelithiasis. No evidence of acute cholecystitis. Reviewed, dictated and finalized at location E.
--- NOTE | ~2023-09-01 | XR_ITS ---
EXAMINATION: XR UGIAC wo kub DATE: 09/01/2023 09:06 INDICATION: . TECHNIQUE: Thick barium contrast with gas effervescent crystals were administered orally. Fluoroscop ic images of the esophagus, stomach, and proximal duodenum were obtained in various projections. The reafter, overhead images of the abdomen were performed. 55 fluoroscopic images. FINDINGS: Epigastric pain. The esophagus is normal in caliber, without mucosal lesions or strictures. There is normal esophagea l peristalsis. There is a small hiatal hernia. No gastroesophageal reflux witnessed during the cours e of the study. The gastric folds are normal. There is a large amount of debris in the stomach. Debris limits evaluat ion for subtle mucosal abnormalities. The proximal duodenum is also normal in appearance. IMPRESSION: 1. Large amount of debris in the stomach limiting evaluation for mucosal abnormality. 2: Small sliding hiatal hernia. Reviewed, dictated and finalized at location B. IMPRESSION: 1. Large amount of debris in the stomach limiting evaluation for mucosal abnor mality. 2: Small sliding hiatal hernia.
== END 2023-09-01 08:16 ==
LOC: MICIMG 08:21
PROVIDERS: PCP Physician Assistant; Visit Provider Physician Assistant
DX: R10.13 Epigastric pain (principal); R06.09 Other forms of dyspnea
CPT/HCPCS: 74246; 76700

== ENCOUNTER 2023-10-12 07:36 | Outpatient (NON) | payer MEDICARE, OTHER, SELFPAY | END 2023-10-12 07:37 | disposition home or self-care (01) | LOC: ANHLAB 10-13 07:39 | PROVIDERS: PCP Physician Assistant; Visit Provider Internal Medicine Gastroenterology | DX: K52.9 Noninfective gastroenteritis and colitis, unspecified (principal) | CPT/HCPCS: 88305; 88342 ==

== ENCOUNTER 2023-10-12 11:39 | Day surgery (SDC) | payer MEDICARE, OTHER, SELFPAY ==
[2023-09-15 11:12] VITALS: BMI 27.6
[2023-09-29 10:53] VITALS: BMI 28.2
--- NOTE | 2023-10-10 16:47 | PM.HPGS ---
History of Present Illness History of Present Illness Consent: Risks, benefits, and alternatives have been discussed and questions answered. Patient agrees to proceed with procedure. Chief complaint: Epigastric Pain Narrative: Lelia Elise is a 68 year old female with lngstanding reeflux symptoms, on Omeprazole 40 mg/day. Two years ago she was found have erosive esophagitis and multiple superficial gastric ulcers. Now she has pain in the epigastric area which lasts for several days. she has also been found to have gallstones. Review of Systems Review of Systems: All systems reviewed & are unremarkable except as noted in HPI and below PMFSH Past Medical History Medical History GERD (gastroesophageal reflux disease) Hypothyroidism Osteoarthritis Overweight Surgical History Surgical History H/O laparoscopy H/O lumbosacral spine surgery History of hysteroscopy (~01/30/23) HSC D&C. For thickened endometrium. Path c/w complex hyperplasia without atypia. Dr Candelario History of tubal ligation Family History Family History Sibling Diabetes mellitus Breast cancer Social History Social History Smoking status: Never smoker Alcohol intake: never Substance use: never Substance use type: does not use Lack of Transportation: No Lack of Food: Never True Current Housing: I Have Housing Concerned About Future Housing: No Difficulty Paying Gas/Electric Bills: No Difficulty Paying for Meds: No Currently Unemployed: No Difficulty w/ Childcare or Family Care: No Living arrangements: alone Gender identity (if verbalized by the patient): Female Sexual Orientation (if Verbalized by the Patient): Straight or Heterosexual Spiritual care concerns: No Meds Home Medications and Allergies Home Medications Medication Instructions Recorded Confirmed Type cholecalciferol (vitamin D3) 125 125 mcg PO DAILY 07/02/21 10/12/23 History mcg (5,000 unit) capsule naproxen sodium 220 mg capsule 220 mg PO BID PRN Muscle Pain 07/02/21 10/12/23 History (Aleve) turmeric (bulk) 95 % powder 1 ea miscellaneous DAILY PRN 07/02/21 10/12/23 History (Curcumin) Muscle Pain zinc gluconate 50 mg tablet 50 mg PO DAILY 07/02/21 10/12/23 History estradiol 1.25 mg/1.25 gram (0.1 1 packet topical DAILY 07/09/21 10/12/23 History %) transdermal gel packet levothyroxine 50 mcg tablet 50 mcg PO DAILY 07/09/21 10/12/23 History omeprazole 40 mg capsule,delayed 40 mg PO DAILY #90 caps 11/24/22 10/12/23 Rx release medroxyprogesterone 10 mg tablet 10 mg PO DAILY 09/29/23 10/12/23 History Allergies Allergy/AdvReac Type Severity Reaction Status Date / Time codeine Allergy Severe N/V Verified 10/12/23 11:57 Exam Const: General: alert Orientation/consciousness: patient oriented x3 Resp: Auscultation: clear to auscultation bilaterally Cardio: Rhythm: regular rhythm GI: GI Palp: Yes Soft to palpation and No Tenderness to palpation present (GI) Neuro: General: patient oriented x3 Assessment and Plan Assessment and plan (1) GERD (gastroesophageal reflux disease): Code(s): K21.9 - Gastro-esophageal reflux disease without esophagitis Status: Acute Assessment and Plan: EGD with possible biopsy or dilatation or cautery.
[2023-10-12 11:58] VITALS: BP 134/97; PULSE 72; RESP 15; TEMP 37.6; O2SAT 99
[2023-10-12 12:01] VITALS: BMI 27.8
[2023-10-12] MEDS: LACTATED RINGERS 1,000 ML 150 ML IV CONT (12:14)
--- NOTE | 2023-10-12 12:40 | WPDANESEPPF ---
Anes - Initial Pre Proc Eval Procedure: Operation Date: 10/12/23 13:30 Proposed Procedures p Esophagogastroduodenoscopy - Alex Gerber MD Date/Time: 10/12/23 12:40 Surgeon: Alex Gerber MD Pre Op Diagnosis: Epigastric Pain Patient Data Age: 68 Gender: F Height: 1.6 m Weight: 71.4 kg Last Vital Signs Temp 37.6 C H 10/12/23 11:58 Pulse 72 10/12/23 11:58 Resp 15 10/12/23 11:58 BP 134/97 H 10/12/23 11:58 Pulse Ox 99 10/12/23 11:58 O2 Del Method Room Air 10/12/23 11:58 Allergies Allergy/AdvReac Type Severity Reaction Status Date / Time codeine Allergy Severe N/V Verified 10/12/23 11:57 Home Medications Medication Instructions Recorded Confirmed Type cholecalciferol (vitamin D3) 125 125 mcg PO DAILY 07/02/21 10/12/23 History mcg (5,000 unit) capsule naproxen sodium 220 mg capsule 220 mg PO BID PRN Muscle Pain 07/02/21 10/12/23 History (Aleve) turmeric (bulk) 95 % powder 1 ea miscellaneous DAILY PRN 07/02/21 10/12/23 History (Curcumin) Muscle Pain zinc gluconate 50 mg tablet 50 mg PO DAILY 07/02/21 10/12/23 History estradiol 1.25 mg/1.25 gram (0.1 1 packet topical DAILY 07/09/21 10/12/23 History %) transdermal gel packet levothyroxine 50 mcg tablet 50 mcg PO DAILY 07/09/21 10/12/23 History omeprazole 40 mg capsule,delayed 40 mg PO DAILY #90 caps 11/24/22 10/12/23 Rx release medroxyprogesterone 10 mg tablet 10 mg PO DAILY 09/29/23 10/12/23 History Patient hx anesthesia problems: none Family hx anesthesia problems: none Results Review: All pre-operative results and documents have been reviewed as part of the pre-operative evaluation. [facility] Past Medical History Medical History GERD (gastroesophageal reflux disease) Hypothyroidism Osteoarthritis Overweight Surgical History Surgical History H/O laparoscopy H/O lumbosacral spine surgery History of hysteroscopy (~01/30/23) HSC D&C. For thickened endometrium. Path c/w complex hyperplasia without atypia. Dr Candelario History of tubal ligation Family History Family History Sibling Diabetes mellitus Breast cancer Social History Social History Smoking status: Never smoker Alcohol intake: never Substance use: never Substance use type: does not use Lack of Transportation: No Lack of Food: Never True Current Housing: I Have Housing Concerned About Future Housing: No Difficulty Paying Gas/Electric Bills: No Difficulty Paying for Meds: No Currently Unemployed: No Difficulty w/ Childcare or Family Care: No Living arrangements: alone Gender identity (if verbalized by the patient): Female Sexual Orientation (if Verbalized by the Patient): Straight or Heterosexual Spiritual care concerns: No Anes - Eval Final PreProcedure Day of Procedure 10/12/23 12:40 Patient weight: overweight Heart: regular rate and rhythm Lungs: clear to auscultation Airway: Mallampati scale class II Neurological: alert and oriented Last oral intake: >/= 8 hours ASA classification: II Emergent: no Anesthetic plan: proceed Anesthesia type and monitoring: general GIVS and standard monitoring Results Review: All pre-operative results and documents have been reviewed as part of the pre-operative evaluation. Informed Consent: The patient's anesthetic plan and its attendant risks and benefits were discussed with the patient/family/POA. Questions were solicited and answers provided to the satisfaction of the patient/family/POA.
[2023-10-12 12:55] VITALS: BP 105/90; PULSE 76; RESP 16; O2SAT 99
[2023-10-12 13:05] VITALS: BP 121/73; PULSE 81; RESP 18; O2SAT 98
[2023-10-12 13:15] VITALS: BP 125/78; PULSE 64; RESP 20; O2SAT 100
--- NOTE | 2023-10-12 13:22 | WPDANESPN ---
Anes - Prog Note Post-Op Date/Time: 10/12/23 13:22 Cardiovascular status: normal Respiratory status: normal Airway patency: baseline Mental status: baseline Post-Op hydration status: normal Vital Signs: Last Vital Signs Temp 37.6 C H 10/12/23 11:58 Pulse 81 10/12/23 13:05 Resp 18 10/12/23 13:05 BP 121/73 10/12/23 13:05 Pulse Ox 98 10/12/23 13:05 O2 Del Method Room Air 10/12/23 13:05 Pain Score (VAS): 0/10 I/O: Intake & Output 10/11/23 10/12/23 10/12/23 23:59 07:59 15:59 Intake Total 200 Balance 200 Patient Feedback: Patient satisfied with anesthetic care.
--- NOTE | 2023-10-12 13:53 | SUR.PHASEII ---
1330; PT DRESSED AND WAITING FOR RIDE.
== END 2023-10-12 13:43 | disposition home or self-care (01) ==
PROVIDERS: PCP Physician Assistant; Visit Provider Internal Medicine Gastroenterology
PROC: 0DJ08ZZ Inspection of Upper Intestinal Tract, Via Natural or Artificial Opening Endoscopic (ICD-10-PCS; CPT 43235; principal; 2023-10-12 13:30)
DX: K21.9 Gastro-esophageal reflux disease without esophagitis (principal); K29.70 Gastritis, unspecified, without bleeding; K44.9 Diaphragmatic hernia without obstruction or gangrene
CPT/HCPCS: 43239

== ENCOUNTER 2023-10-13 08:57 | Outpatient (CLI) | payer MEDICARE, OTHER, SELFPAY ==
--- NOTE | 2023-10-13 | EST_ITS ---
Patient Info Name: Lelia Elise Age: 68 years : 1955 Gender: Female Ht: 63 in Wt: 158 lbs BSA: 1.81 m2 HR: 72 bpm BP: 146 / 76 mmHg Heart Rhythm: Sinus Rhythm Exam Date: 10/13/2023 9:15 AM Exam Location: Echo Lab Patient Status: Outpatient Admit Date: 10/13/2023 Staff Ordering Physician: YossiAnupama PA-C Domestic Maid: Shahla Burris RDCS Attending Provider: JluisAnupama PA-C Exercise Technologist: Shahla Burris RDCS Exercise Physician: Norman Ellis DO Exam Type: CA stress echo Study Info Indications R06.00 - Dyspnea, unspecified Treadmill exercise stress echocardiogram is performed. Summary 1. 1. Negative Aung exercise stress test for ischemic ST changes by ECG criteria. 2. 2. Good functional capacity, achieving 8.9 METs of workload. 3. 3. Appropriate HR response to exercise. 4. 4. Appropriate HR recovery at 1 minute post exercise. 5. 5. Negative stress echocardiogram for ischemia by wall motion analysis. 6. 6. Patient informed of the above results. Stress Echo Findings Left Ventricle Appropriate increase in LV endocardial thickening with systole. Appropriate augmentation of contractility with systole. No wall motion abnormality. Left Ventricle Normal LV systolic function, no wall motion abnormality. Protocol: Aung Stress ECG Details Stage: REST Duration (min): 0 min : 51 sec Speed (mph): 0.0 Grade (%): 0 HR (bpm): 70 SBP (mmHg): 146 DBP (mmHg): 76 METS: --- Stage: REST Duration (min): 12 min : 48 sec Speed (mph): 0.0 Grade (%): 0 HR (bpm): 86 SBP (mmHg): 146 DBP (mmHg): 76 METS: --- Stage: STAGE 1 Duration (min): 1 min : 0 sec Speed (mph): 1.7 Grade (%): 10 HR (bpm): 102 SBP (mmHg): 146 DBP (mmHg): 76 METS: --- Stage: STAGE 1 Duration (min): 2 min : 0 sec Speed (mph): 1.7 Grade (%): 10 HR (bpm): 109 SBP (mmHg): 146 DBP (mmHg): 76 METS: --- Stage: STAGE 1 Duration (min): 3 min : 0 sec Speed (mph): 1.7 Grade (%): 10 HR (bpm): 109 SBP (mmHg): 169 DBP (mmHg): 76 METS: --- Stage: STAGE 2 Duration (min): 1 min : 0 sec Speed (mph): 2.5 Grade (%): 12 HR (bpm): 119 SBP (mmHg): 169 DBP (mmHg): 76 METS: --- Stage: STAGE 2 Duration (min): 2 min : 0 sec Speed (mph): 2.5 Grade (%): 12 HR (bpm): 122 SBP (mmHg): 156 DBP (mmHg): 76 METS: --- Stage: STAGE 2 Duration (min): 3 min : 0 sec Speed (mph): 2.5 Grade (%): 12 HR (bpm): 125 SBP (mmHg): 156 DBP (mmHg): 76 METS: --- Stage: STAGE 3 Duration (min): 1 min : 0 sec Speed (mph): 3.4 Grade (%): 14 HR (bpm): 134 SBP (mmHg): 154 DBP (mmHg): 79 METS: --- Stage: STAGE 3 Duration (min): 1 min : 1 sec Speed (mph): 0.0 Grade (%): 0 HR (bpm): 134 SBP (mmHg): 154 DBP (mmHg): 79 METS: --- Stage: RECOVERY Duration (min): 0 min : 58 sec Speed (mph): 0.0 Grade (%): 0 HR (bpm): 104 SBP (mmHg): 154 DBP (mmHg): 79 METS: ---
== END 2023-10-13 08:58 | disposition home or self-care (01) ==
LOC: ANHCARD 08:58
PROVIDERS: PCP Physician Assistant; Visit Provider Physician Assistant
DX: R06.09 Other forms of dyspnea (principal)
CPT/HCPCS: 93351

== ENCOUNTER 2023-10-23 09:16 | Outpatient (CLI) | payer MEDICARE, OTHER, SELFPAY ==
--- NOTE | ~2023-10-23 | CT_ITS ---
CT of the Abdomen and Pelvis: Indication: Epigastric pain Technique: 2.5 mm axial scans were obtained through the abdomen and pelvis following intravenous adm inistration of 100 cc of Omnipaque 350. Dose reduction technique was used on this scan by utilizing a utomated exposure control and iterative reconstruction technique. The dose-length product (DLP) was 5 53.82 mGy-cm. Findings: Scans through the lung bases are unremarkable. The liver, spleen, pancreas, adrenals and kidneys are within normal limits. Multiple small calcified gallstones are present. There are atherosclerotic calcifications of the aorta. No lymphadenopathy. No bowel obstruction or bowel wall thickening. There is no evidence to suggest acute appendicitis. Images through the pelvis were performed. Urinary bladder unremarkable. No pelvic mass seen. No ascit es. Impression: Cholelithiasis. Reviewed, dictated and finalized at [facility]. Impression: Cholelithiasis.
[2023-10-23 09:40] LABS: Estimated Glomerular Filt Rate > 60
== END 2023-10-23 09:17 ==
PROVIDERS: PCP Physician Assistant; Visit Provider Surgery
DX: R10.13 Epigastric pain (principal); K80.20 Calculus of gallbladder without cholecystitis without obstruction
CPT/HCPCS: 74177; Q9967

== ENCOUNTER 2023-11-05 10:21 | Outpatient (CLI) | payer MEDICARE, OTHER, SELFPAY ==
--- NOTE | ~2023-11-05 | US_ITS ---
EXAMINATION: US pelvic complete w TV DATE: 11/05/2023 11:28 INDICATION: Endometrial hyperplasia. TECHNIQUE: Multiple transabdominal and transvaginal sonographic images of the pelvis were obtained. COMPARISON: CT abdomen and pelvis 10/23/2023 FINDINGS: TRANSABDOMINAL ULTRASOUND: The uterus measures 9.7 x 4.2 x 5.0 cm. There is no free fluid in the pelvis. TRANSVAGINAL ULTRASOUND: The endometrial complex measures 6 mm in thickness. There is a 1.6 cm intramural fibroid. The right o vary is not visualized. The left ovary measures 1.5 x 1.1 x 1.3 cm. IMPRESSION: 1. Uterine fibroid. Reviewed, dictated and finalized at location A. IMPRESSION: 1. Uterine fibroid.
== END 2023-11-05 10:22 ==
LOC: MICIMG 10:22
PROVIDERS: PCP Physician Assistant; Visit Provider Advanced Practice Midwife
DX: N85.00 Endometrial hyperplasia, unspecified (principal); D25.9 Leiomyoma of uterus, unspecified
CPT/HCPCS: 76830; 76856

== ENCOUNTER 2024-02-24 10:33 | Outpatient (CLI) | payer MEDICARE, OTHER, SELFPAY | END 2024-02-24 10:34 | disposition home or self-care (01) | LOC: ANHSURGERY 10:38 | PROVIDERS: PCP Physician Assistant; Visit Provider Obstetrics & Gynecology | DX: N95.0 Postmenopausal bleeding (principal) | CPT/HCPCS: 36415; 86850; 86900; 86901 ==

== ENCOUNTER 2024-05-13 11:19 | Outpatient (CLI) | payer MEDICARE, OTHER, SELFPAY | END 2024-05-13 11:20 | disposition home or self-care (01) | LOC: MICIMG 11:20 | PROVIDERS: PCP Internal Medicine; Visit Provider Internal Medicine | DX: E04.1 Nontoxic single thyroid nodule (principal) | CPT/HCPCS: 76536 ==

== ENCOUNTER 2024-06-08 12:18 | Outpatient (CLI) | payer MEDICARE, OTHER, SELFPAY ==
--- NOTE | ~2024-06-08 | US_ITS ---
EXAMINATION: US FNA w image guidance DATE: 06/08/2024 13:16 INDICATION: Left thyroid nodule. TECHNIQUE: The procedure and its benefits and risks were discussed with the patient. Risks specifically discusse d included bleeding. The patient verbalized understanding of the risks and agreed to proceed. The nec k was prepped and draped in the usual sterile manner. 1% lidocaine was used for local anesthesia. 6 passes were made with a 25G needle into the lesion under ultrasound guidance. There were no immedia te complications. FINDINGS: Grayscale ultrasound images demonstrate needles advanced into a 2.1 cm nodule in left thyroid lobe fo r biopsy. IMPRESSION: 1. Ultrasound-guided fine needle aspiration of a left thyroid nodule. Reviewed, dictated and finalized at location A.
--- OUTSIDE RECORDS SUMMARY | 2024-06-08 13:27 | XMS_ITS | Clinical Summary ---
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 Name Role Phone Unavailable Primary Care Provider Unavailabl e Allergies Active Allergy Reactions Criticality Noted Date Comments Codeine Nausea and Vomiting Low 06/13/2021 Medications No known medications Active Problems Problem Noted Date Diagnosed Date Calculus of gallbladder with out cholecystitis without obstruction 06/14/2021 Epigastric abdominal pain Social History Tobacco Use Types Packs/Day Years Used Date Smoking Tobacco: Never Smokeless Tobacco: Never Alcohol Use Standard Drinks/Week Comments Not Currently 0 (1 standard drink = 0.6 oz pur e alcohol) Comments No Sex and Gender Information Value Date Recorded Sex Assigned at Not on file 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 Gender Identity Not on file Sexual Orientation Not on file Last Filed Vital Signs Vital Sign Reading Time Taken Comments Blood Pressure 125/71 06/14/2021 8:16 AM CDT Pulse 73 06/14/2021 12:00 PM CDT Temperature 36.7 C (98.1 F) 06/14/2021 6:35 AM CDT Respiratory Rate 20 06/14/2021 12:00 PM CDT Oxygen Saturation 95% 06/14/2021 12:00 PM CDT Inhaled Oxygen Concentration - - Weight 72.6 kg (160 lb) 06/13/2021 8:18 PM CDT Height 160 cm (5' 3 ) 06/13/2021 8:18 PM CDT Body Mass Index 28.34 06/13/2021 8:18 PM CDT Plan of Treatment Health Maintenance Due Date Last Done Comments DTAP/TDAP/TD VACCINES (1 - Tdap) 1976 BREAST CANCER SCREENING 1997 COLORECTAL SCREENING 2002 Colorectal Cancer Screening 2002 FIT-DNA Q 3 years 2002 FIT/FOBT Q 1 year 2002 Flex Sig/CT Colonography Q 5 years 2002 PNEUMOCOCCAL VACCINE 50+ YEARS (1 of 1 - PCV) 07/03/19 08 ZOSTER VACCINE (1 of 2) 07/03/2007 OSTEOPOROSIS SCREENING 2022 INFLUENZA VACCINE (#1) 2023 RSV VACCINE (60+ or ) (1 - 1-dose 75+ series) [address] [place] [id number] [facility] [id number] Advance Directives For more information, please contact: [phone] * Full Code (Latest Code Status on File) Date Activated Date Inactivated Comments 06/14/2021 7:28 AM 06/14/2021 2:37 PM
--- OUTSIDE RECORDS SUMMARY | 2024-06-08 13:27 | XMS_ITS | Encounter Summary ---
Author Organization [facility] Address 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
--- OUTSIDE RECORDS SUMMARY | 2024-06-08 13:27 | XMS_ITS | Encounter Summary ---
Author Organization [facility] Address [address] [place] [address] Care Team Providers Care Scratcher Tender Name Role Phone Unavailable Primary Care Provider Unavailabl e Encounter Details Date Type Department Care Team (Late st Contact Info) Description 02/23/1999 Outpatient Historical [facility] [place], Authorized P NO ADDRESS ON FILE Lumbago (Primary Dx) Social History Tobacco Use Types Packs/Day Years Used Date Smoking Tobacco: Never Assessed Comments Unknown Sex and Gender Information Value Date Recorded Sex Assigned at Not on file Legal Sex Female 4:09 AM [employer] Gender Identity Not on file Sexual Orientation Not on file documented as of this encounter Plan of Treatment Not on file documented as of this encounter Visit Diagnoses Diagnosis Lumbago- Primary documented in this encounter
--- OUTSIDE RECORDS SUMMARY | 2024-06-08 13:27 | XMS_ITS | Data Portability ---
Author Organization [facility] Address [address] [facility] [place] [address] Care Team Providers Care Banking Management Consulting Manager Name Role Phone AYESHA MAY Primary Care Provider Assessment Encounter Date Assessment Date Assessment LastModified by Organization Details LastModified Time 01/07/2019 01/07/2019 declines flu shot [email or web address] Not available 01/07/2019 11:04:47 01/05/2020 01/05/2020 edmond [email or web address] Not available 12/15 10:36:01 Plan of Treatment Reminders Order Date Submit Date Provider Last Modified By Organization Details Last Modified Time Details Appointments None recorded. Lab magnesium , serum or plasma 2023 024 KARIME [facility], [address], [place], [address], 4 08:26:30 HbA1c (hemoglob in A1c), blood 2023 024 KARIME [facility], [address], [place], [address], 4 08:26:30 CBC w/ auto diff 2023 024 KARIME [facility], [address], [address], [place], [address], 4 08:26:31 iron, serum 2023 024 KARIME [facility], [address], [place], [address], 4 08:26:29 TSH + free T4, serum 2023 024 GOODELL [facility], [address], [place], [address], 4 08:26:28 T3, free, serum or plasma 2023 024 GOODELL [facility], [address], [place], [address], 4 08:26:31 vitamin B12 + folate, serum or blood 2023 024 GOODELL [facility], [address], [place], [address], 4 08:26:29 Referral podiatris t referral - right 2nd toe, hx of traumatic injury >40 years ago mowing, had tip of toe cut off and repaired. susceptib le to blister formation at toe tip. 2023 024 [facility], [address] [facility], [place], [address], 4 15:42:37 colonosco py referral - Please call patient and schedule appt. Please send consult note after initial visit. Thank You 2018 019 [facility] Marie MD, [address], [address], [place], [address], 0 12:03:34 Procedures colonosco py screening (PROC) 2019 020 [facility], [address], [address], [place], [address], 0 09:18:04 Surgeries None recorded. Imaging US, abdomen, complete 2023 024 [facility], [address], [address], [place], [address], 4 14:07:41 RF, upper gastroint estinal tract, w/ contrast PO 2023 024 [facility], [address], [address], [place], [address], 4 09:45:10 exercise stress echocardi ogram [address] (Cardiology & Emg), [address], [place], [address], 4 16:44:31 XR, chest, 2 view 2023 024 [facility], [address], [address], [place], [address], 4 13:35:48 MAMMO, screening , bilateral 2019 020 [facility] , [address], [place], [address], 0 17:26:52 MAMMO, screening , bilateral 2018 019 GOODELL Not available 9 22:50:45 Medication Orders amoxicill in 875 mg-potass ium clavulana te 125 mg tablet 2023 024 [facility], [address] [place] [address], [id number], 4 12:11:22 famotidin e 40 mg tablet 2023 024 [facility], [address] [place] [address], [id number], 4 11:55:21 medroxypr ogesteron e 2.5 mg tablet 2019 020 [facility], [address] [facility], [place], [place], [id number], 4 10:31:04 estradiol 1 mg tablet 2019 020 [email or web address] [facility] #32621, [address], [place], [place], [id number], 4 10:58:22 estradiol 1 mg tablet 2018 019 [email or web address] [facility] #66899, [address], [place], [place], [id number], 4 10:58:22 medroxypr ogesteron e 2.5 mg tablet 2018 019 [email or web address] [facility] #17125, [address] [facility], [place], [place], [id number], 4 10:31:04 Patient TargetsNo targets recorded. Patient Instructions Encounter Date Encounter Id Patient Instructions Last Modified By Organization Details Last Modified Time 01/07/2019 [id number] mammogram: about this test [email or web address] Not available 01/07/2019 10:57:19 01/05/2020 [id number] well visit, wome n 50 to 65: care instructions [email or web address] Not available 01/05/2020 12:54:41 02/25/2024 [id number] A healthy lifestyle: care instructions [email or web address] Not available 02/25/2024 12:11:16 Reason for Referral Colonoscopy Referral for Scr eening for malignant neoplasm of colon Please call patient and schedule appt. Please send consult note after initial visit. Thank You Referring Physician: Ayesha May, Family Medicine, Encounter Date: 01/07/2019 Committee Member Referral for Acqu ired deformity of toe right 2nd toe, hx of traumatic injury >40 years ago mowing, had tip of toe cut off and repaired. carreon right 2nd toe, hx of traumatic injury >40 years ago mowing, had tip of toe cut off and repaired. susceptible to blister formation at toe tip. Referring Physician: Anupama Sy, Internal Medicine, Encounter Date: 08/25/2023 Results Created Date Observation Date Name Description Value Unit Range Abnormal Flag Note LastModifiedBy Organization Detail LastModifiedTime 07/16/19 24 07/17/2023 TSH+F REE T4 TSH 1.500 uIU/m L 0.450- 4.500 Not Available [facility] ([facility]) [address] [place], [address], 07/17/2023 08:26:28 07/16/19 24 07/17/2023 TSH+F REE T4 T4,free(dire ct) 1.48 NG/dL 0.82-1 .77 Not Available [facility] ([facility]) [address] [place], [address], 07/17/2023 08:26:28 07/16/19 24 07/17/2023 VITAM IN B12 AND FOLAT E vitamin B12 325 pg/mL 232-12 45 Not Available [facility] ([facility]) [address] [place], [address], 07/17/2023 08:26:29 07/16/1907/17/2023 VITAM IN B12 AND FOLAT E folate (folic acid), serum 13.6 NG/mL >3.0 A serum folat e evan ntrat ion of less than 3.1 ng/mL is consi dered to repre sent clini mary defic iency . Not Available [facility] ([facility]) [address] [place], [address], 07/17/2023 08:26:29 07/16/19 24 07/17/2023 IRON iron 82 ug/dL 27-139 Not Available [facility] ([facility]) [address] [place], [address], 07/17/2023 08:26:29 07/16/19 24 07/17/2023 HEMOG LOBIN A1C hemoglobin A1C 5.3 % 4.8-5. 6 Predi abete s: 5.7 - 6.4 Diabe tatum: >6.4 Glyce blanche contr ol for adult s with diabe tatum: <7.0 Not Available [facility] ([facility]) [address] [facility], [place], [address], 07/17/2023 08:26:30 07/16/19 24 07/17/2023 MAGNE SIUM magnesium 2.1 mg/dL 1.6-2. 3 Not Available [facility] ([facility]) [address] [facility], [place], [address], 07/17/2023 08:26:30 07/16/19 24 07/17/2023 CBC WITH DIFFE RENTI AL/PL ATELE T WBC 7.6 x10e3 /uL 3.4-10 .8 Not Available [facility] ([facility]) [address] [facility], [place], [address], 07/17/2023 08:26:31 07/16/19 24 07/17/2023 CBC WITH DIFFE RENTI AL/PL ATELE T RBC 4.60 x10e6 /uL 3.77-5 .28 Not Available [facility] ([facility]) [address] [facility], [place], [address], 07/17/2023 08:26:31 07/16/19 24 07/17/2023 CBC WITH DIFFE RENTI AL/PL ATELE T hemoglobin 13.5 g/dL 11.1-1 5.9 Not Available [facility] ([facility]) [address] [place], [address], 07/17/2023 08:26:31 07/16/19 24 07/17/2023 CBC WITH DIFFE RENTI AL/PL ATELE T hematocrit 40.4 % 34.0-4 6.6 Not Available [facility] ([facility]) [address] [place], [address], 07/17/2023 08:26:31 07/16/19 24 07/17/2023 CBC WITH DIFFE RENTI AL/PL ATELE T MCV 88 fL 79-97 Not Available [facility] ([facility]) [address] [facility], [place], [address], 07/17/2023 08:26:31 07/16/19 24 07/17/2023 CBC WITH DIFFE RENTI AL/PL ATELE T MCH 29.3 pg 26.6-3 3.0 Not Available [facility] ([facility]) [address] [facility], [place], [address], 07/17/2023 08:26:31 07/16/19 24 07/17/2023 CBC WITH DIFFE RENTI AL/PL ATELE T MCHC 33.4 g/dL 31.5-3 5.7 Not Available [facility] ([facility]) [address] [facility], [place], [address], 07/17/2023 08:26:31 07/16/19 24 07/17/2023 CBC WITH DIFFE RENTI AL/PL ATELE T RDW 12.5 % 11.7-1 5.4 Not Available [facility] ([facility]) [address] [facility], [place], [address], 07/17/2023 08:26:31 07/16/19 24 07/17/2023 CBC WITH DIFFE RENTI AL/PL ATELE T platelets 333 x10e3 /uL 150-45 0 Not Available [facility] ([facility]) [address] [facility], [place], [address], 07/17/2023 08:26:31 07/16/19 24 07/17/2023 CBC WITH DIFFE RENTI AL/PL ATELE T neutrophils 60 % notest ab. Not Available [facility] ([facility]) [address] [facility], [place], [address], 07/17/2023 08:26:31 07/16/19 24 07/17/2023 CBC WITH DIFFE RENTI AL/PL ATELE T lymphs 32 % notest ab. Not Available [facility] ([facility]) [address] [facility], [place], [address], 07/17/2023 08:26:31 07/16/19 24 07/17/2023 CBC WITH DIFFE RENTI AL/PL ATELE T monocytes 6 % notest ab. Not Available [facility] ([facility]) [address] [facility], [place], [address], 07/17/2023 08:26:31 07/16/19 24 07/17/2023 CBC WITH DIFFE RENTI AL/PL ATELE T eos 1 % notest ab. Not Available [facility] ([facility]) [address] [facility], [place], [address], 07/17/2023 08:26:31 07/16/19 24 07/17/2023 CBC WITH DIFFE RENTI AL/PL ATELE T basos 1 % notest ab. Not Available [facility] ([facility]) [address] [facility], [place], [address], 07/17/2023 08:26:31 07/16/19 24 07/17/2023 CBC WITH DIFFE RENTI AL/PL ATELE T neutrophils (absolute) 4.5 x10e3 /uL 1.4-7. 0 Not Available [facility] ([facility]) [address] [facility], [place], [address], 07/17/2023 08:26:31 07/16/19 24 07/17/2023 CBC WITH DIFFE RENTI AL/PL ATELE T lymphs (absolute) 2.4 x10e3 /uL 0.7-3. 1 Not Available [facility] ([facility]) [address] [facility], [place], [address], 07/17/2023 08:26:31 07/16/19 24 07/17/2023 CBC WITH DIFFE RENTI AL/PL ATELE T monocytes(ab solute) 0.5 x10e3 /uL 0.1-0. 9 Not Available [facility] ([facility]) [address] [place], [address], 07/17/2023 08:26:31 07/16/19 24 07/17/2023 CBC WITH DIFFE RENTI AL/PL ATELE T eos (absolute) 0.1 x10e3 /uL 0.0-0. 4 Not Available [facility] ([facility]) [address] [place], [address], 07/17/2023 08:26:31 07/16/19 24 07/17/2023 CBC WITH DIFFE RENTI AL/PL ATELE T baso (absolute) 0.1 x10e3 /uL 0.0-0. 2 Not Available [facility] ([facility]) [address] [place], [address], 07/17/2023 08:26:31 07/16/19 24 07/17/2023 CBC WITH DIFFE RENTI AL/PL ATELE T immature granulocytes 0 % notest ab. Not Available [facility] ([facility]) [address] [place], [address], 07/17/2023 08:26:31 07/16/19 24 07/17/2023 CBC WITH DIFFE RENTI AL/PL ATELE T immature grans (abs) 0.0 x10e3 /uL 0.0-0. 1 Not Available [facility] ([facility]) [address] [place], [address], 07/17/2023 08:26:31 07/16/19 24 07/17/2023 TRIIO DOTHY AVA E (T3), FREE triiodothyro nine (T3), free 2.5 pg/mL 2.0-4. 4 Not Available [facility] ([facility]) [address] [place], [address], 07/17/2023 08:26:31 01/14/20 19 01/13/2019 MAMMO , scree joseluis, bilat eral No observ ation record ed. [address] (Imaging) [address] [place] [address] [address], [place], [address], 01/21/2019 13:45:46 02/01/20 20 02/01/2020 MAMMO , scree joseluis, bilat eral No observ ation record ed. [address], [place], [address], 02/13/2020 10:55:18 03/18/19 22 03/14/2021 MAMMO , scree joseluis, bilat eral No observ ation record ed. [address] [address], [place], [address], 03/21/2021 17:19:01 07/20/19 24 07/20/2023 US, thyro id No observ ation record ed. [email or web address] [address], [place], [address], 07/24/2023 15:40:02 08/26/19 24 08/26/2023 XR, chest , 2 view No observ ation record ed. [facility] [address], [place], [address], 09/01/2023 15:39:21 09/01/19 24 09/01/2023 US, abdom en, compl ete No observ ation record ed. [facility] [address], [place], [address], 09/04/2023 14:08:33 09/08/19 24 09/01/2023 RF, upper gastr ointe thad l tract , w/ contr ast PO No observ ation record ed. [facility] [address], [place], [address], 09/09/2023 15:38:19 10/22/19 24 10/13/2023 exerc ise stres s echoc ardio gram No observ ation record ed. [facility] ([facility]) [address], [place], [address], 10/23/2023 16:03:02 10/23/19 24 10/23/2023 CT, abdom en + pelvi s, w/ contr ast No observ ation record ed. [email or web address] [facility] [address], [place], [address], 10/26/2023 13:56:43 11/06/19 24 11/05/2023 US, pelvi s No observ ation record ed. [email or web address] [facility] [address], [place], [address], 11/06/2023 13:33:21 Result Notes None recorded. Problems Name Problem SNOMED Code Status Onset Date Resolution Date Notes Provider Name and Address Organization Details Recorded Time Menopausal syndrome 815399635 Active 2017 Maranda cochran MD - [place] 8 17:11:50 Hypothyroidism 43973359 Active 2023 SATINDER Decker Attn: Josafat baird,[address] [place], [address], [facility] - SI 4 13:23:58 Fatigue 99120829 Active 2023 SATINDER Decker Attn: Josafat baird,[address] [place], [address], [facility] - SIF 4 13:24:00 Gastroesophage al reflux disease without esophagitis 875795801 Active 2023 SATINDER Decker Attn: Josafat baird,[address] [place], [address], [facility] - SIF 4 13:24:01 Body mass index 25-29 - overweight 598352923 Active 2023 Leonila Garza MA null, [place] - [place] 4 11:56:21 Overweight 363423159 Active 2023 SATINDER Decker Attn: Josafat baird,[address] [facility], [place], [address], [facility] - SI 4 12:11:14 Problem Notes None recorded. Procedures Surgical History Date Name Laterality Status Provider Name and Address Organization Details Recorded Time 03/02/20 24 laparoscopic hysterectomy completed Bonita Briggs MD - [facility] 04/25/2024 11:37:55 07/27/19 colonoscopy completed Bonita Briggs MD - [facility] 07/30/2023 11:51:22 01/24/20 17 Cerumen Removal completed BETH Gomez NP Attn: Accounting,[address] [facility], [place], [address], [facility] - SI 01/23/2017 17:07:57 Back Surgery completed SATINDER LACY Attn: Accounting,[address] [facility], [place], [address], [facility] - SI 01/05/2020 10:26:01 Tubal Ligation completed Don Benedict MA MD - [facility] 12/05/2016 14:16:56 Imaging Results Imaging Date Name Status LastModified by Organization Details LastModified Time 01/13/2019 MAMMO, screening, bilateral completed [address] (Imaging) [address] [place] [address] [place] [address], [address], 01/21/2019 13:45:46 02/01/2020 MAMMO, screening, bilateral completed [address], [address], 02/13/2020 10:55:18 03/14/2021 MAMMO, screening, bilateral completed [address], [address], 03/21/2021 17:19:01 07/20/2023 US, thyroid completed [email or web address] [facility] [address], [place], [address], 07/24/2023 15:40:02 08/26/2023 XR, chest, 2 view completed [facility] [address], [place], [address], 09/01/2023 15:39:21 09/01/2023 US, abdomen, complete completed [facility] [address], [place], [address], 09/04/2023 14:08:33 09/01/2023 RF, upper gastrointestinal tract, w/ contrast PO completed [facility] [address], [place], [address], 09/09/2023 15:38:19 10/13/2023 exercise stress echocardiogram completed [facility] ([facility]) [address], [place], [address], 10/23/2023 16:03:02 10/23/2023 CT, abdomen + pelvis, w/ contrast [facility] [place] [address] Imaging [address], [place], [address], 10/26/2023 13:56:43 11/05/2023 US, pelvis completed [address] Imaging [address], [place], [address], 11/06/2023 13:33:21 Procedure Notes None recorded. Medical Equipment None Reported. Allergies Allergen ID Allergen Name Allergen Category Reaction Reaction Severity Criticality Documentation Date Start Date Code Code System Note Provider Name and Address Organization Details Recorded Time 50249 codeine medicatio n vomiting severe Not available 12/05/2016 2670 RxNorm Not Available Not Available Not Available Medications Name Sig Start Date Stop Date Status Note LastModified by Organization Details LastModified Time amoxicill in 500 mg capsule TAKE 2 CAPSULES BY MOUTH TWICE DAILY 02/24 completed Not Available Not Available Not Available medroxypr ogesteron e 10 mg tablet Take 1 tablet every day by oral route for 90 days. active Not Available Not Available No t Available clarithro mycin 500 mg tablet TAKE 1 TABLET BY MOUTH TWICE DAILY 02/24 completed Not Available Not Available Not Available medroxypr ogesteron e 2.5 mg tablet TAKE 1 TABLET BY MOUTH EVERY DAY FOR THE FIRST 12 DAYS OF THE MONTH 07/14 completed Not Available Not Available Not Available hydrocodo ne 5 mg-acetam inophen 325 mg tablet active Not Available Not Available Not Available sucralfat e 1 gram tablet TAKE 1 TABLET BY MOUTH FOUR TIMES DAILY active Not Available Not Available No t Available famotidin e 40 mg tablet Take 1 tablet every day by oral route for 90 days. active Not Available Not Available No t Available metronida zole 500 mg tablet TAKE 1 TABLET BY MOUTH EVERY 12 HOURS FOR 7 DAYS 07/14 completed Not Available Not Available Not Available omeprazol e 40 mg capsule,d elayed release Take 1 capsule every day by oral route for 15 days. active Not Available Not Available No t Available amoxicill in 875 mg tablet Take 1 tablet twice a day by oral route for 10 days. 10/29 completed Not Available Not Available Not Available estradiol 1 mg tablet TAKE 1 TABLET BY MOUTH EVERY DAY 07/14 completed Not Available Not Available Not Available levothyro xine 50 mcg tablet Take 1 tablet every day by oral route for 90 days. active Not Available Not Available No t Available misoprost ol 200 mcg tablet TAKE 1 TABLET BY MOUTH 1 TIME 2 HOURS BEFORE PROCEDUR E active Not Available Not Available No t Available scopolami ne 1 mg over 3 days transderm al patch active Not Available Not Available Not Available amoxicill in 875 mg-potass ium clavulana te 125 mg tablet Take 1 tablet every 12 hours by oral route. active Not Available Not Available No t Available estradiol active cream compound ed [facility] Not Available Not Available Not Available Vitals Date Recorded Body weight Body height Body mass index (BMI) Body temperature Heart rate Oxygen saturation Oxygen saturation in Arterial blood by Pulse oximetry Systolic blood pressure Diastolic blood pressure Provider Name and Address Organization Details Last Updated DateTime 9 [address]6935.7 8 g 160.02 cm 28.3 kg/m2 98.5 [degF] 78 /min 97 % 97 % 126 mm[Hg] 82 mm[Hg] Malu Montero [facility] 9 10:45:38 Date Recorded Body height Body mass index (BMI) Body weight Heart rate Oxygen saturation Oxygen saturation in Arterial blood by Pulse oximetry Systolic blood pressure Diastolic blood pressure Provider Name and Address Organization Details Last Updated DateTime 0 161.29 cm 28.6 kg/m2 52358.8 5 g 67 /min 98 % 98 % 104 mm[Hg] 68 mm[Hg] Sonia Waterman MA [facility] 0 10:16:21 Date Recorded Body height Body mass index (BMI) Body weight Respiratory rate Oxygen saturation Oxygen saturation in Arterial blood by Pulse oximetry Heart rate Systolic blood pressure Diastolic blood pressure Provider Name and Address Organization Details Last Updated DateTime 4 161.95 cm 27.7 kg/m2 41902.7 8 g 16 /min 99 % 99 % 78 /min 108 mm[Hg] 72 mm[Hg] Leonila Garza MA [facility] 4 10:35:06 Date Recorded Systolic blood pressure Diastolic blood pressure Systolic blood pressure Diastolic blood pressure Provider Name and Address Organization Details Last Updated DateTime 07/15/2023 130 mm[Hg] 84 mm[Hg] 130 mm[Hg] 80 mm[Hg] SATINDER Decker Attn: Accounting ,[address] [place], [address] , [facility] 4 11:12:01 Date Recorded Body height Body mass index (BMI) Body weight Respiratory rate Oxygen saturation Oxygen saturation in Arterial blood by Pulse oximetry Heart rate Systolic blood pressure Diastolic blood pressure Provider Name and Address Organization Details Last Updated DateTime 4 161.95 cm 27.6 kg/m2 36889.6 2 g 18 /min 99 % 99 % 75 /min 132 mm[Hg] 72 mm[Hg] Leonila Garza MA [facility] 4 12:28:28 Date Recorded Body height Body mass index (BMI) Body weight Respiratory rate Oxygen saturation Oxygen saturation in Arterial blood by Pulse oximetry Heart rate Systolic blood pressure Diastolic blood pressure Provider Name and Address Organization Details Last Updated DateTime 4 161.95 cm 26.5 kg/m2 68761.6 3 g 18 /min 98 % 98 % 97 /min 132 mm[Hg] 82 mm[Hg] Leonila Garza MA [facility] 4 11:58:01 Social History Question Answer Notes LastModified by Organizat ion Details LastModified Time Tobacco Smoking Status Never Smoker Don Benedict MA null, [facility] 12/05/2016 14:19:14 What Is Your Level Of Alcohol Consumption? None Information not available 07/15/2023 Are You Blind Or Do You Have Difficulty Seeing? No GLASSES Information not available 07/15/2023 What Is Your Level Of Caffeine Consumption? Occasional Information not available 12/05/2016 In The 14 Days Before Symptom Onset, Have You Had Close Contact With A Laboratory-confir med COVID-19 While That Case Was Ill? No Information not available 07/14/2023 In The 14 Days Before Symptom Onset, Have You Had Close Contact With A Person Who Is Under Investigation For COVID-19 While That Person Was Ill? No Information not available 07/14/2023 Have You Been To An Area Known To Be High Risk For COVID-19? No Information not available 07/14/2023 Are You Deaf Or Do You Have Serious Difficulty Hearing? No Information not available 07/15/2023 What Type Of Diet Are You Following? REGULAR NO RED MEAT Information not available 07/15/2023 Are There Any Guns Present In Your Home? No Information not available 12/05/2016 Marital Status Informatio n not available 12/05/2016 What Was The Date Of Your Most Recent Tobacco Screening? 02/25/2024 Information not available 02/25/2024 Performs Monthly Self-breast Exam? No Information no t available 12/05/2016 Do You Use Your Seat Belt Or Car Seat Routinely? Yes Information not available 07/14/2023 Seat Belts Used Routinely Yes Information not available 12/05/2016 Smoke Alarm In Home Yes Information not available 12/05/2016 Do You Have Smoke And Carbon Monoxide Detectors In Your Home? Yes Information not available 07/15/2023 General Stress Level Low Information not available 12/05/2016 Do You Feel Stressed (tense, Restless, Nervous, Or Anxious, Or Unable To Sleep At Night)? [id number] Information not available 07/15/2023 Do You Use Any Illicit Or Recreational Drugs? No Information not available 07/15/2023 Do You Use Sunscreen Routinely? Yes Information not available 12/05/2016 Has Tobacco Cessation Counseling Been Provided? Yes Information not available 07/14/2023 On What Date Was Tobacco Cessation Counseling Provided? 02/25/2024 Information not available 02/25/2024 Do You Or Have You Ever Used Any Other Forms Of Tobacco Or Nicotine? No Information not available 08/25/2023 Sex: Female Functional Status Question Answer Note LastModified by Organization D etails LastModified Time Are you able to care for yourself? Yes Information n ot available 07/14/2023 Mental Status None recorded. Family History Relationship Description Onset Age of this Age Resolved Age Notes LastModified by Organization Details LastModified Time Sister Diabetes mellitus Not available 2016 14:17:24 Sister Cerebrovascu lar accident Not available 14:18:19 Sister Asthma tcarterma Not available 07/15/2023 11:16:02 Sister Hypertensive disorder tcarterma Not available 2023 11:16:20 Sister Kidney disease tcarterma Not available 2023 11:16:31 Sister Migraine tcarterma Not availabl e 07/15/2023 11:16:37 Mother Cerebrovascu lar accident Not available 14:18:19 Mother Hypertensive disorder tcarterma Not available 2023 11:16:20 Mother Hypercholest erolemia tcarterma Not available 2023 11:16:25 Father Asthma tcarterma Not available 07/15/2023 11:16:02 Father Dementia tcarterma Not availabl e 07/15/2023 11:16:09 Medical History Condition Response Coronary Artery Disease N Other N Atrial Fibrillation N High Blood Pressure N Depression N COPD N Blood Clots N Anxiety Disorder N Muscle, Joint, or Bone Problems N Acid Reflux (GERD) N Cancer N Stroke N Headaches N Kidney or Bladder Problems N Eating Disorder N Skin Problems N Asthma Y Allergies N Substance Abuse N Hepatitis N ADHD N High Cholesterol N Liver Disease N Schizophrenia N Thyroid Problems N GI Problems N Anemia N Heart Attack (NH) N Diabetes N Seizures/Epilepsy N Heart Failure N Osteoporosis N Gynecological History Statement/Question Response Menses Monthly N If Post Menopausal, Age at Menopause 57 Current Control Method Tubal Ligat ion Flow Light LMP Unknown Obstetrics History GPAL:G 2 P 2 0 0 2 Type Value Full Term 2 Living 2 Total 2 Past Encounters Encounter ID Performer Location Encounter Start Date Encounter Closed Date Diagnosis/Indication Diagnosis SNOMED-CT Code Diagnosis ICD10 Code Diagnosis Note [id number] BETH Gomez NP [facility] [address] [place] [address] 12/05/2016 13:55:47 12/08/2016 11:02:58 Screening mammography 39676857 Z12.31 Gynecologi c examination 43752968 Z01.419 Menopausal syndrome 1237 40119 N95.9 [id number] BETH Gomez NP [facility] [address] [place] [address] 01/23/2017 10:58:08 01/27/2017 15:38:40 Polyuria 21284957 R35.8 Urine dipstick and culture ordered. Acute sinusitis 36952225 J01.90 Start oral antibiotic s as directed. OTC antihistam ine/flonas e. Impacted cerumen 4889250 6 H61.23 High risk sexual behavior 528260411 Z72.51 Nuab obtained. [id number] BETH Gomez NP [facility] [address] [place] [address] 12/08/2017 13:56:52 12/08/2017 16:45:58 Menopausal syndrome 771234377 N95.9 -Continue estradiol and progestero ne-Pt understand ing of risks Gynecologi c examination 38461739 Z01.411 -Last pap smear 12/05/16, repeat 2019 Screening mammography 24 154356 Z12.31 -Order given for mammogram. [id number] Ayesha May MD [facility] [address] [place] [address] 01/07/2019 10:12:01 01/10/2019 11:27:34 Screening mammography 24756029 Z12.31 Menopausal syndrome 1237 96041 N95.9 Screening for malignant neoplasm of colon 202384369 Z12.11 Depression screening 171 835345 Z13.31 patient does not appear to be significan tly depressed. [id number] SATINDER LACY [facility] [address] [place] [address] 01/05/2020 09:48:44 01/06/2020 07:58:43 Menopausal syndrome 809942519 N95.9 Patient needs refills. I do not recommend taking estradiol for longer than one year. Her sister does have hormone dependent breast cancer. Her chiropract or is weaning her off. She still has night sweats. We discussed venlafaxin e and she will consider it. Screening mammography 24 150046 Z12.31 denies any breast complaints - skin changes, nipple discharge, massess, tenderness Adult heal th examination 901331462 Z00.00 Patient presents for her annual visit. She is due for mammogram and colonoscop y. Advised to stop hormone therapy and she agrees to wean herself off. Copy of lab results brought with her from chiropract or. - continue vitamin D and calcium- continue staying active- discussed diet- colonoscop y- mammogram- pap in 2 years Screening for malignant neoplasm of colon 373855492 Z12.11 due for colonoscop y. Has always struggled with constipati on. [id number] SATINDER Decker [facility] [employer] [facility] [place] [address] [place] [address] 07/15/2023 10:13:00 07/15/2023 11:16:38 Hypothyroidism 76733441 E03.9 on thyroid supplement , levothyrox ine 50mcg daily. due for updated TFT panel Anemia 782007706 D64.9 hx of anemia reported to provider. check CBC and iron Blood gluc ose outside reference range 730088417 R73.09 a1c screening due. having some episodes of lower blood sugar levels she thinks at times. Long-term drug therapy 473931056 Z79.899 screening magnesium lab Fatigue 10494599 R53.83 screening b12 and folate labs Gastroesop hageal reflux disease without esophagitis 677686659 K21.9 stable on omeprazole 40mg daily. [id number] SATINDER Decker [facility] [employer] [address] [place] [address] 08/25/2023 12:14:15 08/25/2023 14:25:54 Epigastric pain 68691052 R10.13 refer for complete u/s. refer for UGI series. start famotidine 40mg daily. Dyspnea on exertion 6084 5006 R06.09 refer for exercise stress echo. check CXR. Acquired d eformity of toe 66146104 M20.5X1 right 2nd toe, hx of traumatic injury >40 years ago mowing, had tip of toe cut off and repaired. susceptibl e to blister formation at toe tip. [id number] SATINDER Decker [facility] [employer] [address] [place] [address] 02/25/2024 11:34:51 02/25/2024 12:32:59 Body mass index 25-29 - overweight 835768725 Z68.26 BMI is 26.5 Overweight 171848494 E66 .3 Acute sinusitis 95509832 J01.90 Start Augmentin 875 mg twice daily for 7 days may continue over-the-c ounter antihistam ine and mild decongesta nt and Mucinex and a nasal steroid spray Health Concerns Section Related Observation LastModified by Organization Detai ls LastModified Time None Recorded Concern Status LastModified by Organization Details LastModified Time None Recorded Advance Directives Directive None Recorded Payers Encounter Date Sequence Insurance Name Policy Number Policy New[place] Covered Member ID New[place] Member ID Guarantor Name 01/07/2019 1 [place] [id number] Lelia Elise [id number] Lelia Elise 01/05/2020 1 [place] [id number] Lelia Elise [id number] Lelia Elise 07/15/2023 1 [place] Lelia Elise [id number] Lelia Elise 07/15/2023 2 [employer] [place] (MEDICARE SUPPLEMENT) Lelia Arik [id number] Lelia Patelbach 08/25/2023 1 [place] Lelia Elise [id number] Lelia Elise 08/25/2023 2 [employer] [place] (MEDICARE SUPPLE[place]) Lelia Arik [id number] Lelia Arik 02/25/2024 1 [place] Lelia Elise [id number] Lelia Elise 02/25/2024 2 [employer] [place] (MEDICARE SUPPLEMENT) Lelia Arik [id number] Lelia Elise Notes Date Note Type Note Provider Name and Address Organization Details Recorded Time 0 text/html Lelia is a 64 YO F presenting for f/u No concerns today. Her chiropractor, Dr Briones, is weaning her off her hormones. He just ran lab work on her and she brought a copy. He told her she has RA and she does not want treatment or rheumatology appointment. denies cp, sob, swelling LE, cough, ARITA, depression SATINDER LACY Attn: Accounting,[address] [facility], [place], [address], [facility] 01/05/2020 12:55:25 4 text/html HyperlipidemiaReported bypatient.Notes:LDL 151, HDL 54, Trigs 135, total 231. she is not taking medicine.Reflux/GERDReporte d bypatient.Notes:hx of PUD in 2020 time frame. EGD ? showed ulcers, gallstones, impacted stool.Had constipation issues; then colonoscopy eventually completed with f/u scopeThyroidReported bypatient.Notes:stable on thyroid supplement, levothyroxine 50mcg daily. would like to discuss her underarms states that she has been having some smell to them,states that she also has been very fatigue which causes her arms to feel heavy, states that she has been having headaches states that sometimes its am/pm not so much throughout the day,states that she gets heart palpitations when she eats/also states that she also feels like her body is going through a shock or something 'NOT ANXIOUS OR ANYTHING PT, STATES IT JUST FEELS LIKE electricity IS GOING THROUGH HER BODY Hx of D&C fall [address] hartley; uterine lining was thicker . she placed pt back on progesterone and SATINDER Decker Attn: Accounting,[address] [place] [address], [phone], [facility] 07/15/2023 13:24:17 4 text/html Abdominal PainReported bypatient.Location:RUQ; epigastric Quality:pain;bloating;dull Severity:moderate Duration:intermittent Onset/Timing:wax/wane Context:food Modifying Factors:nothing gives relief Associated Symptoms:no fever; no chills; no blood in the urine; no heartburnUpper Respiratory SymptomsReported bypatient.Location:chest Severity:mild Duration:symptoms lasting over 2 weeks Context:no sick contacts; no foreign travel; non-smoker Associated Symptoms:no sputum production; no wheezing;shortness of breath SATINDER Decker Attn: Accounting,[address] [place], [address], [facility] 09/09/2023 17:50:38 4 text/html Upper Respiratory SymptomsReported bypatient.Location:head Quality:colored phlegm;congested Severity:mild Onset/Timing:gradual Context:no sick contacts; no foreign travel; non-smoker Associated Symptoms:yellow-green, thick sputum; Right ear pain and headache SATINDER Decker Attn: Accounting,[address] [place] [address], [phone], [facility] 03/13/2024 22:01:42 OBGyn Episode No OBEpisode recorded.
== END 2024-06-08 12:19 | disposition home or self-care (01) ==
PROVIDERS: PCP Physician Assistant; Visit Provider Internal Medicine
DX: E04.1 Nontoxic single thyroid nodule (principal)
CPT/HCPCS: 10005; 88172; 88173; 88305

== ENCOUNTER 2024-08-18 09:34 | Outpatient (CLI) | payer MEDICARE, OTHER, SELFPAY ==
--- NOTE | ~2024-08-18 | MM_ITS ---
EXAMINATION: MM screening yanely BI w berna HISTORY: Screening TECHNIQUE: Craniocaudal and mediolateral oblique 3-D tomosynthesis images were obtained and synthetic 2-D images were generated. CAD analysis was submitted and interpreted. COMPARISON: 07/03/2023 through 02/01/2020. BREAST PARENCHYMAL COMPOSITION: There are scattered areas of fibroglandular density. FINDINGS: There is no evidence of suspicious mass, calcification, or architectural distortion to sugg est malignancy in either breast. There has been no suspicious interval change. IMPRESSION: 1. No mammographic evidence of malignancy. 2. Recommend routine screening mammography in one year. BI-RADS Category 1: Negative Reviewed, dictated and finalized at location B.
--- OUTSIDE RECORDS SUMMARY | 2024-08-18 10:24 | XMS_ITS | Clinical Summary ---
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
--- OUTSIDE RECORDS SUMMARY | 2024-08-18 10:24 | XMS_ITS | Encounter Summary ---
Author Organization [facility] Address 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
--- OUTSIDE RECORDS SUMMARY | 2024-08-18 10:24 | XMS_ITS | Data Portability ---
Author Organization [facility] [address] [facility] [place] [address] Care Team Providers Care Space Scheduler Name Role Phone AYESHA MAY Primary Care Provider [phone] Assessment Encounter Date Assessment Date Assessment LastModified by Organization Details LastModified Time 01/07/2019 01/07/2019 declines flu shot [email or web address] Not available 01/07/2019 11:04:47 01/05/2020 01/05/2020 edmond [email or web address] Not available 12/15 10:36:01 Plan of Treatment Reminders Order Date Submit Date Provider Last Modified By Organization Details Last Modified Time Details Appointments None recorded. Lab magnesium , serum or plasma 2023 024 KARIME [facility], [address], [address], [place], [address], 4 08:26:30 HbA1c (hemoglob in A1c), blood 2023 024 KARIME [facility], [address], [place], [address], 4 08:26:30 CBC w/ auto diff 2023 024 KARIME [facility], [address], [place], [address], 4 08:26:31 iron, serum 2023 024 KARIME [facility], [address], [place], [address], 4 08:26:29 TSH + free T4, serum 2023 024 LE GRAND [facility], [address], [address], [place], [address], 4 08:26:28 T3, free, serum or plasma 2023 024 [facility], [address], [address], [place], [address], 4 08:26:31 vitamin B12 + folate, serum or blood 2023 024 [facility], [address], [place], [address], 4 08:26:29 Referral podiatris t referral - right 2nd toe, hx of traumatic injury >40 years ago mowing, had tip of toe cut off and repaired. susceptib le to blister formation at toe tip. 2023 024 [facility], [address], [place], [address], 4 15:42:37 colonosco py referral - Please call patient and schedule appt. Please send consult note after initial visit. Thank You 2018 019 [facility] Marie MD, [address], [address], [place], [address], 0 12:03:34 Procedures colonosco py screening (PROC) 2019 020 [facility], [address], [address], [place], [address], 0 09:18:04 Surgeries None recorded. Imaging US, abdomen, complete 2023 024 [facility], [address], [address], [place], [address], 4 14:07:41 RF, upper gastroint estinal tract, w/ contrast PO 2023 024 [facility], [address], [address], [place], [address], 4 09:45:10 exercise stress echocardi ogram [address] (Cardiology & Emg), [address] [facility] [address], [place], [address], 4 16:44:31 XR, chest, 2 view 2023 024 [facility], [address], [address], [place], [address], 4 13:35:48 MAMMO, screening , bilateral 2019 020 [facility] (Mammography) , [address], [place], [address], 0 17:26:52 MAMMO, screening , bilateral 2018 019 LE GRAND Not available 9 22:50:45 Medication Orders amoxicill in 875 mg-potass ium clavulana te 125 mg tablet 2023 024 [facility], [address] [facility] [address] [place] [address], [id number], 4 12:11:22 famotidin e 40 mg tablet 2023 024 [facility], [address] [facility] [address] [place] [address], [id number], 4 11:55:21 medroxypr ogesteron e 2.5 mg tablet 2019 020 [facility], [address] [facility], [place], [place], [id number], 4 10:31:04 estradiol 1 mg tablet 2019 020 [email or web address] [facility] #45218, [address], [place], [place], [id number], 4 10:58:22 estradiol 1 mg tablet 2018 019 [email or web address] [facility] #50309, [address], [place], [place], [id number], 4 10:58:22 medroxypr ogesteron e 2.5 mg tablet 2018 019 [email or web address] [facility] #96184, [address] [facility], [place], [place], [id number], 4 10:31:04 Patient TargetsNo targets recorded. Patient Instructions Encounter Date Encounter Id Patient Instructions Last Modified By Organization Details Last Modified Time 01/07/2019 [id number] mammogram: about this test Not available 01/07/2019 10:57:19 01/05/2020 [id number] well visit, wome n 50 to 65: care instructions [email or web address] Not available 01/05/2020 12:54:41 02/25/2024 [id number] A healthy lifestyle: care instructions [email or web address] Not available 02/25/2024 12:11:16 Reason for Referral Colonoscopy Referral for Scr eening for malignant neoplasm of colon Please call patient and schedule appt. Please send consult note after initial visit. Thank You Referring Physician: Ayesha May, Family Medicine, Encounter Date: 01/07/2019 Entry Analyst Referral for Acqu ired deformity of toe [...] uIU/m L 0.450- 4.500 Not Available [facility] ([facility]) [address] [place], [address], 07/17/2023 08:26:28 07/16/19 24 07/17/2023 TSH+F REE T4 T4,free(dire ct) 1.48 NG/dL 0.82-1 .77 Not Available [facility] ([facility]) [address] [place], [address], 07/17/2023 08:26:28 07/16/19 24 07/17/2023 VITAM IN B12 AND FOLAT E vitamin B12 325 pg/mL 232-12 45 Not Available [facility] ([facility]) [address] [place], [address], 07/17/2023 08:26:29 07/16/1907/17/2023 VITAM IN B12 AND FOLAT E folate (folic acid), serum 13.6 NG/mL >3.0 A serum folat e evan ntrat ion of less than 3.1 ng/mL is consi dered to repre sent clini mary defic iency . Not Available [facility] ([facility]) [address] [place], [address], 07/17/2023 08:26:29 07/16/19 24 07/17/2023 IRON iron 82 ug/dL 27-139 Not Available [facility] ([facility]) [address] [place], [address], 07/17/2023 08:26:29 07/16/19 24 07/17/2023 HEMOG LOBIN A1C hemoglobin A1C 5.3 % 4.8-5. 6 Predi abete s: 5.7 - 6.4 Diabe tatum: >6.4 Glyce blanche contr ol for adult s with diabe tatum: <7.0 Not Available [facility] ([facility]) [address] [facility], [place], [address], 07/17/2023 08:26:30 07/16/19 24 07/17/2023 MAGNE SIUM magnesium 2.1 mg/dL 1.6-2. 3 Not Available [facility] ([facility]) [address] [facility], [place], [address], 07/17/2023 08:26:30 07/16/19 24 07/17/2023 CBC WITH DIFFE RENTI AL/PL ATELE T WBC 7.6 x10e3 /uL 3.4-10 .8 Not Available [facility] ([facility]) [address] [facility], [place], [address], 07/17/2023 08:26:31 07/16/19 24 07/17/2023 CBC WITH DIFFE RENTI AL/PL ATELE T RBC 4.60 x10e6 /uL 3.77-5 .28 Not Available [facility] ([facility]) [address] [facility], [place], [address], 07/17/2023 08:26:31 07/16/19 24 07/17/2023 CBC WITH DIFFE RENTI AL/PL ATELE T hemoglobin 13.5 g/dL 11.1-1 5.9 Not Available [facility] ([facility]) [address] [place], [address], 07/17/2023 08:26:31 07/16/19 24 07/17/2023 CBC WITH DIFFE RENTI AL/PL ATELE T hematocrit 40.4 % 34.0-4 6.6 Not Available [facility] ([facility]) [address] [place], [address], 07/17/2023 08:26:31 07/16/19 24 07/17/2023 CBC WITH DIFFE RENTI AL/PL ATELE T MCV 88 fL 79-97 Not Available [facility] ([facility]) [address] [facility], [place], [address], 07/17/2023 08:26:31 07/16/19 24 07/17/2023 CBC WITH DIFFE RENTI AL/PL ATELE T MCH 29.3 pg 26.6-3 3.0 Not Available [facility] ([facility]) [address] [facility], [place], [address], 07/17/2023 08:26:31 07/16/19 24 07/17/2023 CBC WITH DIFFE RENTI AL/PL ATELE T MCHC 33.4 g/dL 31.5-3 5.7 Not Available [facility] ([facility]) [address] [facility], [place], [address], 07/17/2023 08:26:31 07/16/19 24 07/17/2023 CBC WITH DIFFE RENTI AL/PL ATELE T RDW 12.5 % 11.7-1 5.4 Not Available [facility] ([facility]) [address] [facility], [place], [address], 07/17/2023 08:26:31 07/16/19 24 07/17/2023 CBC WITH DIFFE RENTI AL/PL ATELE T platelets 333 x10e3 /uL 150-45 0 Not Available [facility] ([facility]) [address] [facility], [place], [address], 07/17/2023 08:26:31 07/16/19 24 07/17/2023 CBC WITH DIFFE RENTI AL/PL ATELE T neutrophils 60 % notest ab. Not Available [facility] ([facility]) [address] [facility], [place], [address], 07/17/2023 08:26:31 07/16/19 24 07/17/2023 CBC WITH DIFFE RENTI AL/PL ATELE T lymphs 32 % notest ab. Not Available [facility] ([facility]) [address] [facility], [place], [address], 07/17/2023 08:26:31 07/16/19 24 07/17/2023 CBC WITH DIFFE RENTI AL/PL ATELE T monocytes 6 % notest ab. Not Available [facility] ([facility]) [address] [facility], [place], [address], 07/17/2023 08:26:31 07/16/19 24 07/17/2023 CBC WITH DIFFE RENTI AL/PL ATELE T eos 1 % notest ab. Not Available [facility] ([facility]) [address] [facility], [place], [address], 07/17/2023 08:26:31 07/16/19 24 07/17/2023 CBC WITH DIFFE RENTI AL/PL ATELE T basos 1 % notest ab. Not Available [facility] ([facility]) [address] [facility], [place], [address], 07/17/2023 08:26:31 07/16/19 24 07/17/2023 CBC WITH DIFFE RENTI AL/PL ATELE T neutrophils (absolute) 4.5 x10e3 /uL 1.4-7. 0 Not Available [facility] ([facility]) [address] [facility], [place], [address], 07/17/2023 08:26:31 07/16/19 24 07/17/2023 CBC WITH DIFFE RENTI AL/PL ATELE T lymphs (absolute) 2.4 x10e3 /uL 0.7-3. 1 Not Available [facility] ([facility]) [address] [facility], [place], [address], 07/17/2023 08:26:31 07/16/19 24 07/17/2023 CBC WITH DIFFE RENTI AL/PL ATELE T monocytes(ab solute) 0.5 x10e3 /uL 0.1-0. 9 Not Available [facility] ([facility]) [address] [place], [address], 07/17/2023 08:26:31 07/16/19 24 07/17/2023 CBC WITH DIFFE RENTI AL/PL ATELE T eos (absolute) 0.1 x10e3 /uL 0.0-0. 4 Not Available [facility] ([facility]) [address] [place], [address], 07/17/2023 08:26:31 07/16/19 24 07/17/2023 CBC WITH DIFFE RENTI AL/PL ATELE T baso (absolute) 0.1 x10e3 /uL 0.0-0. 2 Not Available [facility] ([facility]) [address] [place], [address], 07/17/2023 08:26:31 07/16/19 24 07/17/2023 CBC WITH DIFFE RENTI AL/PL ATELE T immature granulocytes 0 % notest ab. Not Available [facility] ([facility]) [address] [place], [address], 07/17/2023 08:26:31 07/16/19 24 07/17/2023 CBC WITH DIFFE RENTI AL/PL ATELE T immature grans (abs) 0.0 x10e3 /uL 0.0-0. 1 Not Available [facility] ([facility]) [address] [place], [address], 07/17/2023 08:26:31 07/16/19 24 07/17/2023 TRIIO DOTHY AVA E (T3), FREE triiodothyro nine (T3), free 2.5 pg/mL 2.0-4. 4 Not Available [facility] ([facility]) [address] [place], [address], 07/17/2023 08:26:31 01/14/20 19 01/13/2019 MAMMO , scree joseluis, bilat eral No observ ation record ed. [address] (Imaging) [address] [place] [address] [address], [place], [address], 01/21/2019 13:45:46 02/01/20 20 02/01/2020 MAMMO , scree joseluis, bilat eral No observ ation record ed. [address], [place], [address], 02/13/2020 10:55:18 03/18/19 22 03/14/2021 MAMMO , scree joseluis, bilat eral No observ ation record ed. [address] [address], [place], [address], 03/21/2021 17:19:01 07/20/19 24 07/20/2023 US, thyro id No observ ation record ed. [facility] [address], [place], [address], 07/24/2023 15:40:02 08/26/19 24 08/26/2023 XR, chest , 2 view No observ ation record ed. [facility] [address], [place], [address], 09/01/2023 15:39:21 09/01/19 24 09/01/2023 US, abdom en, compl ete No observ ation record ed. [facility] [address], [place], [address], 09/04/2023 14:08:33 09/08/19 24 09/01/2023 RF, upper gastr ointe thad l tract , w/ contr ast PO No observ ation record ed. [facility] [address], [place], [address], 09/09/2023 15:38:19 10/22/19 24 10/13/2023 exerc ise stres s echoc ardio gram No observ ation record ed. [facility] (Cardiology & Emg) [address] [facility] [address], [place], [address], 10/23/2023 16:03:02 10/23/19 24 10/23/2023 CT, abdom en + pelvi s, w/ contr ast No observ ation record ed. [email or web address] [address], [place], [address], 10/26/2023 13:56:43 11/06/19 24 11/05/2023 US, pelvi s No observ ation record ed. [email or web address] [address], [place], [address], 11/06/2023 13:33:21 06/09/19 25 06/08/2024 aspir ation /biop sy, ultra sound guide d (PROC ) No observ ation record ed. [address] [facility] [address], [place], [address], 06/09/2024 16:31:23 Result Notes None recorded. Problems Name Problem SNOMED Code Status Onset Date Resolution Date Notes Provider Name and Address Organization Details Recorded Time Menopausal syndrome 904333240 Active 2017 Maranda cochran, [place] - [facility] 8 17:11:50 Hypothyroidism 20625361 Active 2023 SATINDER Decker Attn: Josafat baird,[address] [facility], [place], [address], [facility] - [place] 4 13:23:58 Fatigue 59999328 Active 2023 SATINDER Decker Attn: Josafat baird,[address] [facility], [place], [address], [facility] - [place] 4 13:24:00 Gastroesophage al reflux disease without esophagitis 683223574 Active 2023 SATINDER Decker Attn: Josafat baird,[address] [facility], [place], [address], [facility] - [place] 4 13:24:01 Body mass index 25-29 - overweight 792772130 Active 2023 ANTELMO Ramírez, [place] - [facility] 4 11:56:21 Overweight 028971682 Active 2023 SATINDER Decker Attn: Josafat baird,[address] [facility], [place], [address], [place] - [facility] 4 12:11:14 Problem Notes None recorded. Procedures Surgical History Date Name Laterality Status Provider Name and Address Organization Details Recorded Time 03/02/20 24 laparoscopic hysterectomy completed Bonita Briggs [place] [facility] 04/25/2024 11:37:55 07/27/19 colonoscopy completed Bonita Briggs [place] [facility] 07/30/2023 11:51:22 01/24/20 17 Cerumen Removal completed BETH Gomez NP Attn: Accounting,[address] [place], [address], [facility] - [place] 01/23/2017 17:07:57 Back Surgery completed SATINDER LACY Attn: Accounting,[address] [place], [address], [facility] - [place] 01/05/2020 10:26:01 Tubal Ligation completed Don Benedict [place] [facility] 12/05/2016 14:16:56 Imaging Results None recorded. Procedure Notes None recorded. Medical Equipment None Reported. Allergies Allergen ID Allergen Name Allergen Category Reaction Reaction Severity Criticality Documentation Date Start Date Code Code System Note Provider Name and Address Organization Details Recorded Time 90940 codeine medicatio n vomiting severe Not available 12/05/2016 2670 RxNorm ANTELMO [place], [place] - [facility] 7 14:14:53 Medications Name Sig Start Date Stop Date [...] Not Available Not Available Vitals Date Recorded Systolic blood pressure Diastolic blood pressure Systolic blood pressure Diastolic blood pressure Provider Name and Address Organization Details Last Updated DateTime 07/15/2023 130 mm[Hg] 84 mm[Hg] 130 mm[Hg] 80 mm[Hg] SATINDER Decker Attn: Accounting ,[address] [facility], [place], [address] , [facility] 4 11:12:01 Date Recorded Body height Body mass index (BMI) Body weight Respiratory rate Oxygen saturation Oxygen saturation in Arterial blood by Pulse oximetry Heart rate Systolic blood pressure Diastolic blood pressure Provider Name and Address Organization Details Last Updated DateTime 4 161.95 cm 27.7 kg/m2 88887.7 8 g 16 /min 99 % 99 % 78 /min 108 mm[Hg] 72 mm[Hg] Leonila Garza MA [facility] 4 10:35:06 Date Recorded Body height Body mass index (BMI) Body weight Respiratory rate Oxygen saturation Oxygen saturation in Arterial blood by Pulse oximetry Heart rate Systolic blood pressure Diastolic blood pressure Provider Name and Address Organization Details Last Updated DateTime 4 161.95 cm 27.6 kg/m2 74844.6 2 g 18 /min 99 % 99 % 75 /min 132 mm[Hg] 72 mm[Hg] Leonila Garza MA [facility] 4 12:28:28 Date Recorded Body height Body mass index (BMI) Body weight Heart rate Oxygen saturation Oxygen saturation in Arterial blood by Pulse oximetry Systolic blood pressure Diastolic blood pressure Provider Name and Address Organization Details Last Updated DateTime 0 161.29 cm 28.6 kg/m2 13445.8 5 g 67 /min 98 % 98 % 104 mm[Hg] 68 mm[Hg] Sonia Waterman MA [facility] 0 10:16:21 Date Recorded Body weight Body height Body mass index (BMI) Body temperature Heart rate Oxygen saturation Oxygen saturation in Arterial blood by Pulse oximetry Systolic blood pressure Diastolic blood pressure Provider Name and Address Organization Details Last Updated DateTime 9 76443.7 8 g 160.02 cm 28.3 kg/m2 98.5 [degF] 78 /min 97 % 97 % 126 mm[Hg] 82 mm[Hg] Malu Montero [facility] 9 10:45:38 Date Recorded Body height Body mass index (BMI) Body weight Respiratory rate Oxygen saturation Oxygen saturation in Arterial blood by Pulse oximetry Heart rate Systolic blood pressure Diastolic blood pressure Provider Name and Address Organization Details Last Updated DateTime 4 161.95 cm 26.5 kg/m2 52938.6 3 g 18 /min 98 % 98 % 97 /min 132 mm[Hg] 82 mm[Hg] Leonila Garza MA [facility] 4 11:58:01 Social History Question Answer Notes LastModified by Organizat ion Details LastModified Time Tobacco Smoking Status Never Smoker Don Benedict [place] null, [place] - [facility] 12/05/2016 14:19:14 Are You Blind Or Do You Have [...] Low Information not available 12/05/2016 Do You Use Sunscreen Routinely? Yes Information not available 12/05/2016 Has Tobacco Cessation Counseling Been Provided? Yes Information not available 07/14/2023 On What Date Was Tobacco Cessation Counseling Provided? 02/25/2024 Information not available 02/25/2024 Sex: Female Functional Status Question Answer Note LastModified by Organizat ion Details LastModified Time Do you use any illicit or recreational drugs? No Information not available 07/15/2023 Do you or have you ever used any other forms of tobacco or nicotine? No Information not available 08/25/2023 What is your level of alcohol consumption? None Information not available 07/15/2023 Are you able to care for yourself? Yes Information not available 07/14/2023 Mental Status Question Answer Note LastModified by Organization D etails LastModified Time Do you feel stressed (tense, restless, nervous, or anxious, or unable to sleep at night)? [id number] Information not available 07/15/2023 Family History Relationship Description Onset Age of [...] Atrial Fibrillation N High Blood Pressure N Thyroid Problems N Kidney or Bladder Problems N Depression N COPD N Blood Clots N GI Problems N Skin Problems N Eating Disorder N Anemia N Heart Attack ([place]) N Diabetes N Anxiety Disorder N Muscle, Joint, or Bone Problems N Seizures/Epilepsy N Acid Reflux (GERD) N Cancer N Stroke N Allergies N Asthma Y ADHD N Substance Abuse N High Cholesterol N Hepatitis N Liver Disease N Schizophrenia N Headaches N Osteoporosis N Heart Failure N Gynecological History Statement/Question Response Menses Monthly [...] SNOMED-CT Code Diagnosis ICD10 Code Diagnosis Note [id number] BETH Gomez NP [facility] [address] [place] [address] 12/05/2016 13:55:47 12/08/2016 11:02:58 Screening mammography 29718478 Z12.31 Gynecologi c examination 64213145 Z01.419 Menopausal syndrome 1237 04348 N95.9 [id number] BETH Gomez NP [facility] [address] [place] [address] 01/23/2017 10:58:08 01/27/2017 15:38:40 Polyuria 09151662 R35.8 Urine dipstick and culture ordered. Acute sinusitis 38767449 J01.90 Start oral antibiotic s as directed. OTC antihistam ine/flonas e. Impacted cerumen 9136402 6 H61.23 High risk sexual behavior 411730751 Z72.51 Nuswab obtained. [id number] BETH Gomez NP [facility] [address] [place] [address] 12/08/2017 13:56:52 12/08/2017 16:45:58 Menopausal syndrome 733631365 N95.9 -Continue estradiol and progestero ne-Pt understand ing of risks Gynecologi c examination 71164927 Z01.411 -Last pap smear 12/05/16, repeat 2019 Screening mammography 24 440463 Z12.31 -Order given for mammogram. [id number] Ayesha May MD [facility] [address] [place] [address] 01/07/2019 10:12:01 01/10/2019 11:27:34 Screening mammography 16287476 Z12.31 Menopausal syndrome 1237 [address] N95.9 Screening for malignant neoplasm of colon 598391157 Z12.11 Depression screening 171 182651 Z13.31 patient does not appear to be significan tly depressed. [id number] SATINDER LACY [facility] [address] [place] [address] 01/05/2020 09:48:44 01/06/2020 07:58:43 Menopausal syndrome 052568948 N95.9 Patient needs refills. I do not recommend taking estradiol for longer than one year. Her sister does have hormone dependent breast cancer. Her chiropract or is weaning her off. She still has night sweats. We discussed venlafaxin e and she will consider it. Screening mammography 24 248126 Z12.31 denies any breast complaints - skin changes, nipple discharge, massess, tenderness Adult heal th examination 002285513 Z00.00 Patient presents for her annual visit. She is due for mammogram and colonoscop y. Advised to stop hormone therapy and she agrees to wean herself off. Copy of lab results brought with her from chiropract or. - continue vitamin D and calcium- continue staying active- discussed diet- colonoscop y- mammogram- pap in 2 years Screening for malignant neoplasm of colon 235853266 Z12.11 due for colonoscop y. Has always struggled with constipati on. [id number] Lucas Romero MD [facility] - Yesenia Gorman [address] [place] [address] 07/15/2023 10:13:00 07/15/2023 11:16:38 Hypothyroidism 02941248 E03.9 on thyroid supplement , levothyrox ine 50mcg daily. due for updated TFT panel Anemia 577694079 D64.9 hx of anemia reported to provider. check CBC and iron Blood gluc ose outside reference range 628351998 R73.09 a1c screening due. having some episodes of lower blood sugar levels she thinks at times. Long-term drug therapy 071944183 Z79.899 screening magnesium lab Fatigue 03875668 R53.83 screening b12 and folate labs Gastroesop hageal reflux disease without esophagitis 407823509 K21.9 stable on omeprazole 40mg daily. [id number] Lucas Romero MD [facility] [employer] [address] [place] [address] 08/25/2023 12:14:15 08/25/2023 14:25:54 Epigastric pain 43643817 R10.13 refer for complete u/s. refer for UGI series. start famotidine 40mg daily. Dyspnea on exertion 6084 5006 R06.09 refer for exercise stress echo. check CXR. Acquired d eformity of toe 94883258 M20.5X1 right 2nd toe, hx of traumatic injury >40 years ago mowing, had tip of toe cut off and repaired. susceptibl e to blister formation at toe tip. [id number] Lucas Romero MD [employer] [address] [place] [address] 02/25/2024 11:34:51 02/25/2024 12:32:59 Body mass index 25-29 - overweight 210378922 Z68.26 BMI is 26.5 Overweight 378837003 E66 .3 Acute sinusitis 28710940 J01.90 Start Augmentin 875 mg twice daily for 7 days may continue over-the-c ounter antihistam ine and mild decongesta nt and Mucinex and a nasal steroid spray Health Concerns Section Related Observation LastModified by Organization Kartikai bubba LastModified Time None Recorded Concern Status LastModified by Organization Details LastModified Time None Recorded Advance Directives Directive None Recorded Payers Encounter Date Sequence Insurance Name Policy Number Policy [place] Covered Member ID [place] Member ID Guarantor Name 01/07/2019 1 [employer] - [employer] (PPO) [id number] Lelia Elise [id number] Lelia Elise 01/05/2020 1 [facility] [employer] [place] [id number] Lelia Elise [id number] Lelia Elise 07/15/2023 1 [place] Lelia Elise [id number] Lelia Elise 07/15/2023 2 [employer] [place] (MEDICARE SUPPLEMENT) Lelia Arik [id number] Lelia Arik 08/25/2023 1 [place] Lelia Patelbach [id number] Lelia Elise 08/25/2023 2 [employer] [place] (MEDICARE SUPPLE[place]) Lelia Arik [id number] Lelia Arik 02/25/2024 1 [place] Lelia Patelbach [id number] Lelia Arik 02/25/2024 2 [employer] [place] [place] (MEDICARE SUPPLE[place]) Lelia Arik [id number] Lelia Elise Notes Date Note Type Note [...] ARITA, depression SATINDER LACY Attn: Accounting,[address] [place], [address], [facility] 01/05/2020 12:55:25 4 text/html HyperlipidemiaReported [...] back on progesterone and SATINDER Decker Attn: Accounting,[address] [place] [address], [phone], [facility] 07/15/2023 13:24:17 4 text/html Abdominal PainReported bypatient.Location:RUQ; epigastric Quality:pain;bloating;dull Severity:moderate Duration:intermittent Onset/Timing:wax/wane Context:food Modifying Factors:nothing gives relief Associated Symptoms:no fever; no chills; no blood in the urine; no heartburnUpper Respiratory SymptomsReported bypatient.Location:chest Severity:mild Duration:symptoms lasting over 2 weeks Context:no sick contacts; no foreign travel; non-smoker Associated Symptoms:no sputum production; no wheezing;shortness of breath SATINDER Decker Attn: Accounting,[address] [place] [address], [phone], [facility] 09/09/2023 17:50:38 4 text/html Upper Respiratory SymptomsReported bypatient.Location:head Quality:colored phlegm;congested Severity:mild Onset/Timing:gradual Context:no sick contacts; no foreign travel; non-smoker Associated Symptoms:yellow-green, thick sputum; Right ear pain and headache SATINDER Decker Attn: Accounting,[address] [place] [address], [phone], [facility] 03/13/2024 22:01:42 OBGyn Episode No OBEpisode recorded.
--- OUTSIDE RECORDS SUMMARY | 2024-08-18 10:24 | XMS_ITS | Encounter Summary ---
Author Organization [facility] Address 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
== END 2024-08-18 09:35 | disposition home or self-care (01) ==
LOC: ANHIMG 09:38
PROVIDERS: PCP Physician Assistant; Visit Provider Advanced Practice Midwife
DX: Z12.31 Encounter for screening mammogram for malignant neoplasm of breast (principal)
CPT/HCPCS: 77063; 77067

== ENCOUNTER 2024-10-25 09:25 | Outpatient (CLI) | payer MEDICARE, OTHER, SELFPAY ==
--- OUTSIDE RECORDS SUMMARY | 2024-10-25 10:01 | XMS_ITS | Clinical Summary ---
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
--- OUTSIDE RECORDS SUMMARY | 2024-10-25 10:01 | XMS_ITS | Encounter Summary ---
Author Organization [facility] Address 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
--- OUTSIDE RECORDS SUMMARY | 2024-10-25 10:01 | XMS_ITS | Encounter Summary ---
Author Organization [facility] Address 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
== END 2024-10-25 09:26 | disposition home or self-care (01) ==
LOC: ANHLAB 09:27
PROVIDERS: PCP Physician Assistant; Visit Provider Nurse Practitioner Family
DX: K29.70 Gastritis, unspecified, without bleeding (principal); B96.81 Helicobacter pylori [H. pylori] as the cause of diseases classified elsewhere
CPT/HCPCS: 83013

== ENCOUNTER 2024-11-29 21:33 | Emergency (ER) | payer MEDICARE, OTHER, SELFPAY ==
--- NOTE | ~2024-11-29 | XR_ITS ---
Examination: XR chest 2V Clinical History: CP Comparison: 08/26/2023 Technique: PA and Lateral Findings: Cardiomediastinal silhouette normal size and configuration. Lungs clear. No acute bony abnormality. IMPRESSION: 1. No acute cardiopulmonary findings. Reviewed, dictated and finalized at location R.
--- OUTSIDE RECORDS SUMMARY | 2024-11-29 21:36 | XMS_ITS | Clinical Summary ---
Author Organization 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
--- OUTSIDE RECORDS SUMMARY | 2024-11-29 21:36 | XMS_ITS | Encounter Summary ---
Author Organization [facility] Address 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
--- NOTE | 2024-11-29 21:54 | ECG_ITS ---
Test Date: 2024-11-29 21:59:12 Measurements Intervals [place] Rate: 79 P: -5 MI: 170 QRS: -8 QRSD: 79 T: 25 QT: 355 QTc: 408 Interpretive Statements SINUS RHYTHM MINIMAL VOLTAGE CRITERIA FOR LVH, CONSIDER NORMAL VARIANT [MEETS CRITERIA IN ONE OF: R(aVL), S(V1), R(V5), R(V5/V6)+S(V1)] ABNORMAL ECG No previous ECG available for comparison Electronically Signed On 11-30-2024 07:39:23 CDT by Abdoul Majano M.D.
[2024-11-29 22:01] VITALS: BP 154/77; PULSE 75; RESP 12; O2SAT 100
[2024-11-29 22:02] VITALS: BP 154/77; PULSE 76; RESP 12; TEMP 36.6; O2SAT 100
[2024-11-29 22:05] LABS: Hematocrit 40.4 % (37.0-47.0); Hemoglobin 13.5 g/dL (12.0-15.0); Immature Granulocyte Percent A 0.2 % (0-0.5); Lymphocytes Absolute Auto 3.50 K/mm3 (0.9-3.2); Mean Corpuscular HGB Conc 33.4 g/dl (32-36); Mean Corpuscular Hemoglobin 28.6 pg (26-34); Mean Corpuscular Volume 85.6 fl (80-100); Nucleated Red Blood Cells Absolute Auto 0.000 K/mm3 (0.0-0.012); Nucleated Red Blood Cells Perc 0.0 % (0.0-0.2); Platelet Count Result 331 k/mm3 (150-375); Red Blood Count 4.72 M/mm3 (4.2-5.4); White Blood Count 10.0 K/mm3 (4.5-10.0)
[2024-11-29 22:17] LABS: Alanine Aminotransferase 18 U/L (6-35); Albumin Level 4.6 g/dL (3.5-5.1); Alkaline Phosphatase 92 U/L (38-126); Anion Gap 9 mmol/L (4-12); Aspartate Amino Transferase 25 U/L (14-36); Bilirubin,Total 1.1 mg/dL (0.2-1.3); Blood Urea Nitrogen 19 mg/dL (7-17); Calcium 9.4 mg/dL (8.4-10.2); Carbon Dioxide 23 mmol/L (22-30); Chloride 105 mmol/L (98-107); Estimated CRCL calculation 55 ml/min; Estimated Glomerular Filt Rate > 60; Glucose 103 mg/dL (65-110); INR 1.0; Lipase 120 U/L (23-300); Partial Thromboplastin Time 28.5 Seconds (22.3-36.8); Potassium 3.7 mmol/L (3.4-5.0); Prothrombin Time 12.9 Seconds (11.1-14.7); Sodium 137 mmol/L (137-145); Total Protein 7.8 g/dL (6.3-8.2)
--- NOTE | 2024-11-29 22:19 | ED_ITS ---
HPI - Chest Pain General Chief Complaint: Chest Pain Stated Complaint: High blood pressure Time Seen by Provider: 11/29/24 21:57 History of Present Illness HPI narrative: This is a 69-year-old female with history of hypothyroidism who presents to the ED for concerns for hypertension. Patient states that about a week ago, she had a PCP follow-up because she was having a slight headache/right ear pain and she was noted to have a slightly increased blood pressure. Since then, she has been having intermittent right ear pain described as pulsating. She has also had some chest tightness. She went to a [employer] game today and it was maybe a little stressful and she began to have the ear pulsating again. She had checked her blood pressure multiple times for the last few days and it was as high as 160s/90s. This prompted her to come to the ED. At this time, patient reports mild right ear pain. Denies chest pain, shortness of breath, headache. Related Data Home Medications ?Medication ?Instructions ?Recorded ?Confirmed ?Last Taken ?Type cholecalciferol (vitamin D3) 125 125 mcg PO DAILY 06/1409/06/24 02/27/24 History mcg (5,000 unit) capsule naproxen sodium 220 mg capsule 220 mg PO PRN PRN Muscl e Pain 07/02/21 09/06/24 02/27/24 History (Aleve) cyanocobalamin (vitamin B-12) 1,000 mcg PO DAILY 02/1709/06/24 02/27/24 History 1,000 mcg tablet magnesium gluconate 500 mg tablet 500 mg PO DAILY 08/0609/06/24 02/27/24 History melatonin 10 mg tablet 10 mg PO HS PRN Insomnia 08/0609/06/24 02/27/24 History Allergies Allergy/AdvReac Type Severity Reaction Status Date / Time codeine Allergy Severe N/V Verified 10/11/24 08:52 Review of Systems 2 Review of Systems: Gen.: Denies fevers or chills Eyes: Denies eye pain or visual change ENT: Denies congestion Respiratory: Denies shortness of breath or cough CV: As per HPI GI: Denies abdominal pain nausea, emesis or diarrhea denies burning, urgency, frequency or hematuria Musculoskeletal: Denies back pain or muscle pain Neuro: Denies numbness, tingling, weakness or focal weakness Skin: Denies rash Except as documented, all other systems reviewed and negative [facility] Past Medical History Medical History Cholelithiasis Helicobacter pylori gastritis Osteoarthritis GERD (gastroesophageal reflux disease) Overweight Hypothyroidism Surgical History Surgical History H/O: hysterectomy History of hysteroscopy (~01/30/23) [facility]. For thickened endometrium. Path c/w complex hyperplasia without atypia. Dr Candelario History of tubal ligation H/O laparoscopy H/O lumbosacral spine surgery Family History Family History Sibling Diabetes mellitus Breast cancer Social History Social History Smoking status: Never smoker Alcohol intake: never Substance use: never Substance use type: does not use Do You Feel Safe in your Home?: Yes Lack of Transportation: No Lack of Food: Never True Current Housing: Decline to Answer Concerned About Future Housing: Decline to Answer Difficulty Paying Gas/Electric Bills: Decline to Answer Difficulty Paying for Meds: Decline to Answer Currently Unemployed: Decline to Answer Education: Decline to Answer Difficulty w/ Childcare or Family Care: Decline to Answer Living arrangements: alone Gender identity (if verbalized by the patient): Female Sexual Orientation (if Verbalized by the Patient): Straight or Heterosexual Spiritual care concerns: No Exam 2 Narrative: APPEARANCE: No acute distress, nontoxic, resting in bed EYES: EOMI HEENT: Normocephalic, atraumatic, OMM RESPIRATORY: No respiratory distress Clear to auscultation bilaterally with no rhonchi wheezing or rales. CARDIOVASCULAR: Regular rate and rhythm without murmurs rubs or gallops. ABDOMINAL: Soft, nontender, nondistended, no rebound or guarding MUSCULOSKELETAl: Moves all extremities. No clubbing, cyanosis or edema. NEURO: Awake and alert. Following commands, speech normal, no focal deficits SKIN:: Warm, dry. No rashes lesions or abrasions PSYCHIATRIC: Normal affect/mood, Course Vital Signs Vital signs: Vital Signs Pulse Rate 75 11/29/24 22:01 Respiratory Rate 12 11/29/24 22:01 Blood Pressure 154/77 H 11/29/24 22:01 Pulse Oximetry 100 11/29/24 22:01 Temperature 97.8 F 11/29/24 23:09 Pulse Rate 70 11/29/24 23:09 Respiratory Rate 20 11/29/24 23:09 Blood Pressure 137/78 11/29/24 23:09 Pulse Oximetry 99 11/29/24 23:09 MDM - Chest Pain MDM Narrative Medical decision making narrative: 69-year-old female presents to the ED for concerns for hypertension. On initial evaluation, patient was no acute distress, afebrile and hemodynamically stable. Initial blood pressure 154/77. Heart and lungs clear. Abdomen soft and nontender. Cbc and CMP were without significant abnormalities. Troponin negative. EKG showed no concerning findings. Chest x-ray showed no acute process. A very low suspicion for any level of ACS at this time. Her blood pressure did improve to 130s/70s without medications. Given her history, she will likely need to be started on an antihypertensive. She was given a prescription for Norvasc. She was advised to call her PCP in the morning as there was apparently discussions of starting an antihypertensive in that they may have suggested he different 1. Patient was advised to check her blood pressure prior to taking the amlodipine. Patient was agreeable to this plan. Given strict return precautions. Differential Diagnosis Differential diagnosis: Likely other (Hypertensive urgency/emergency, ACS, electrolyte abnormality) Medical Records Data Attestation: I reviewed the patient's medical records. Lab Data Attestation: I reviewed the patient's lab results. 11/29/24 21:59 11/29/24 21:59 Labs: Lab Results 11/29/24 Range/Units 21:59 WBC 10.0 (4.5-10.0) K/mm3 RBC 4.72 (4.2-5.4) M/mm3 Hgb 13.5 (12.0-15.0) g/dL Hct 40.4 (37.0-47.0) % MCV 85.6 (80-100) fl MCH 28.6 (26-34) pg MCHC 33.4 (32-36) g/dl RDW 13.2 (11.5-14.5) % Plt Count 331 (150-375) k/mm3 MPV 9.4 (7.4-10.4) fl Immature Gran % (Auto) 0.2 (0-0.5) % Neut % (Auto) 55.8 (45.5-73.1) % Lymph % (Auto) 35.0 (18.3-44.2) % [place] % (Auto) 7.3 (2.6-8.5) % Eos % (Auto) 0.9 (0-4.4) % Baso % (Auto) 0.8 (0.2-1.2) % Lymph # (Auto) 3.50 H (0.9-3.2) K/mm3 [place] # (Auto) 0.7 H (0.1-0.6) K/mm3 Eos # (Auto) 0.1 (0-0.3) K/mm3 Baso # (Auto) 0.1 (0.0-0.1) K/mm3 Abs Immat Gran (auto) 0.02 (0.00-0.031) K/mm3 Absolute Neuts (auto) 5.6 (1.3-6.7) K/mm3 Absolute Nucleated RBC 0.000 (0.0-0.012) K/mm3 Nucleated RBC % 0.0 (0.0-0.2) % PT 12.9 (11.1-14.7) Seconds INR 1.0 APTT 28.5 (22.3-36.8) Seconds Sodium 137 (137-145) mmol/L Potassium 3.7 (3.4-5.0) mmol/L Chloride 105 (98-107) mmol/L Carbon Dioxide 23 (22-30) mmol/L Anion Gap 9 (4-12) mmol/L BUN 19 H (7-17) mg/dL Creatinine 0.82 (0.7-1.0) mg/dL Estim Creat Clear Calc 55 ml/min Estimated GFR > 60 (59 - ) Glucose 103 (65-110) mg/dL Calcium 9.4 (8.4-10.2) mg/dL Total Bilirubin 1.1 (0.2-1.3) mg/dL AST 25 (14-36) U/L ALT 18 (6-35) U/L Alkaline Phosphatase 92 (38-126) U/L Troponin I < 0.012 (0.000-0.034) ng/mL Total Protein 7.8 (6.3-8.2) g/dL Albumin 4.6 (3.5-5.1) g/dL Lipase 120 (23-300) U/L Imaging Data Attestation: I personally reviewed and interpreted this imaging study as follows: (Chest x-ray: Normal appearing heart silhouette, no pleural effusions, no consolidations) ECG Data EKG #1: ECG completion date: 11/30/24 ECG completion time: 21:59 Interpretation: Normal sinus rhythm rate of 79, normal axis, normal intervals, no acute ST or T- wave changes. No prior to compare Discharge Plan Discharge Clinical Impression: Hypertension Patient Disposition: Home Condition: Stable Instructions: Antibiotic Form Additional Instructions: Your labs, a chest x-ray, EKG were all reassuring and not indicative of heart damage at this time. Your symptoms are most likely related to your blood pressure. Your given a prescription for Norvasc, take this as prescribed. Call your PCP in the morning to discuss your blood pressure management further. Return the ED for any new or worsening symptoms. Patient Language: Bulgarian Prescriptions: New amlodipine [Norvasc] 5 mg tablet 5 mg PO DAILY Qty: 30 0RF No Action estrogen 0.1% topical cream 1 ml topical DAILY Qty: 30 11RF Rx Instructions: apply 1ml topically to inner thigh or wrist daily levothyroxine 50 mcg tablet 50 mcg PO DAILY Qty: 90 0RF cholecalciferol (vitamin D3) 125 mcg (5,000 unit) capsule 125 mcg PO DAILY naproxen sodium [Aleve] 220 mg capsule 220 mg PO PRN PRN (Reason: Muscle Pain) cyanocobalamin (vitamin B-12) 1,000 mcg Tablet 1,000 mcg PO DAILY melatonin 10 mg Tablet 10 mg PO HS PRN (Reason: Insomnia) magnesium gluconate 500 mg Tablet 500 mg PO DAILY omeprazole 40 mg capsule,delayed release(DR/EC) 40 mg PO DAILY 90 Days Qty: 90 3RF progesterone micronized [Prometrium] 100 mg capsule 100 mg PO QHS Qty: 30 0RF Follow-up/Referrals: Yossi,HOA Altman [Primary Care Provider, Unknown]
[2024-11-29 22:29] LABS: Troponin I < 0.012 ng/mL (0.000-0.034)
--- OUTSIDE RECORDS SUMMARY | 2024-11-29 22:44 | XMS_ITS | Clinical Summary ---
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
--- OUTSIDE RECORDS SUMMARY | 2024-11-29 22:44 | XMS_ITS | Encounter Summary ---
Author Organization [facility] Address 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
[2024-11-29 23:09] VITALS: BP 137/78; PULSE 70; RESP 20; TEMP 36.6; O2SAT 99
== END 2024-11-29 23:16 | disposition home or self-care (01) ==
PROVIDERS: Emergency Provider Student in an Organized Health Care Education/Training Program; PCP Physician Assistant
DX: I10 Essential (primary) hypertension (principal); R07.89 Other chest pain; E03.9 Hypothyroidism, unspecified; M19.90 Unspecified osteoarthritis, unspecified site; K21.9 Gastro-esophageal reflux disease without esophagitis; Z90.710 Acquired absence of both cervix and uterus
CPT/HCPCS: 36415; 71046; 80053; 83690; 84484; 85025; 85610; 85730; 93005; 99284

== ENCOUNTER 2024-12-08 09:15 | Outpatient (RCR) | payer MEDICARE, OTHER, SELFPAY ==
--- NOTE | 2024-10-03 11:49 | OPREHPOC ---
Outpatient Therapy Plan of Care This is a Multidisciplinary Plan of Care that may contain components documented by all disciplines (PT, OT, and ST.) PT Problem 1 PT Problem #1 Knowledge Deficit PT Goal 1 Goal / Goal Update 1. Patient will perform independent HEP Target Visit 3 PT Problem 2 PT Problem #2 Pain PT Goal 1 Goal / Goal Update 1. Patient will report pain does not limit walking 2. Patient will perform typical activities with abdominal pain no higher than 3/10 3. No pain with pelvic exam and normal muscle tone Target Visit 5 PT Problem 3 PT Problem #3 Impaired Strength PT Goal 1 Goal / Goal Update 1. Improve hip abduction to 5/5 isabella for gait without pain 2. Improve pelvic floor strength to 4/5 to reduce incontinence 3. Improve pelvic floor endurance to 10 seconds to reduce incontinence Target Visit 5
--- NOTE | 2024-10-03 11:50 | PTOPEVAL1 ---
Assessment and note entered by Mara Benz DPT Evaluation Information Assessment Status Evaluation Diagnosis m25.559, r10.30 ICD-10 Condition Codes (PT) Pain in left hip M25.552,Weakness R53.1,Pelvic and perineal pain R10.2,Stress incontinence N39.3 Subjective Information Patient has DDD and a history of back issues. Pt had a complete hysterectomy in February and has been noticing lower left abdominal pain. Pain increases with walking. Sometimes pain just happens, highest 8/10 and lowest 1/10. Voids more than 10 times a day and 4-5 times overnight. Can hold urge to void at least 15- 30 minutes. No urge incontinence or pain with urination. Long history of stress incontinence with coughing or sneezing, probably once a week on average. Wears pads when out and about and sometimes has to change clothes. BM usually daily, some constipation in the past. Denies fecal incontinence. Denies history of pelvic pain. Pt has been 2 times, both vaginal deliveries. 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 Patient goal: pain relief Return to MD in 1 year. Reported Pain Level Pain Score 4: Self Report Assessment PT Clinical Summary The patient is presenting to skilled therapy following a complete hysterectomy in February and lower left abdominal/pelvic pain. She reports a history of stress incontinence. She presents with increased pelvic floor muscle tone and difficulty relaxing after contraction, as well as decreased hip and abdominal strength. These impairments are contributing to her pain and difficulty with typical activities including walking. She will benefit from therapy to reduce pain and restore full function as well as to address incontinence once pain has been reduced. Plan of Care Interventions Electrical Stimulation,Hot Pack/Cold Pack,Manual Therapy,Neuro Re-education,Patient/Caregiver Education,Therapeutic Activities,Therapeutic Exercise PT Services Indicated Yes Treatment Frequency and 1 time a week for 5 visits Duration These treatments will address the objective and functional deficits as defined above. The patient will be advanced safely and appropriately in order for the patient to progress towards his/her prior level of function. Additional exercises will be introduced and as well as a comprehensive home exercise program upon discharge, if needed, ?to ensure carryover of functional gains achieved in the clinic. This treatment plan has been reviewed and agreement upon by the patient.
--- NOTE | 2024-11-17 11:37 | OPREHPOC ---
Outpatient Therapy Plan of Care This is a Multidisciplinary Plan of Care that may contain components documented by all disciplines (PT, OT, and ST.) PT Problem 1 PT Problem #1 Knowledge Deficit PT Goal 1 Goal / Goal Update 1. Patient will perform independent HEP Target Visit 3 Progress Met PT Problem 2 PT Problem #2 Pain PT Goal 1 Goal / Goal Update 1. Patient will report pain does not limit walking 2. Patient will perform typical activities with abdominal pain no higher than 3/10 3. No pain with pelvic exam and normal muscle tone update 11/17/24 1. improved but not gone 2. 7/10 highest 3. no pain, still increased tone Target Visit 5 Progress Partially Met PT Problem 3 PT Problem #3 Impaired Strength PT Goal 1 Goal / Goal Update 1. Improve hip abduction to 5/5 isabella for gait without pain 2. Improve pelvic floor strength to 4/5 to reduce incontinence 3. Improve pelvic floor endurance to 10 seconds to reduce incontinence update 11/17/24 1. 4/5 isabella 2. no change 3. no change Target Visit 5 Progress Partially Met
--- NOTE | 2024-11-17 11:37 | PTOPPROG ---
Assessment and note entered by Mara Benz DPT Evaluation Information Assessment Status Progress Diagnosis m25.559, r10.30 ICD-10 Condition Codes (PT) Pain in left hip M25.552,Weakness R53.1,Pelvic and perineal pain R10.2,Stress incontinence N39.3 Subjective Information Overall feels better with therapy. Highest pain recently 7-8/10 and lowest 0/10. Typically pain is worst after walking still but sometimes is random . Voiding less than 10 times a day and 4 at night. Can hold urge to void at least 30 minutes. Not always wearing pads in the community and incontinence 2-3 times in the last month. Assessment PT Clinical Summary The patient has made some progress in therapy and reports improvements in her pain and ability to do activities at home. She demonstrates improved but still limited hip strength and no pain with pelvic floor palpation this visit. She will benefit from further skilled therapy to continue addressing pain in order to restore full function. Plan of Care Interventions Electrical Stimulation,Hot Pack/Cold Pack,Manual Therapy,Neuro Re-education,Patient/Caregiver Education,Therapeutic Activities,Therapeutic Exercise PT Services Indicated Yes Treatment Frequency and 1 time a week for 4 visits Duration These treatments will address the objective and functional deficits as defined above. The patient will be advanced safely and appropriately in order for the patient to progress towards his/her prior level of function. Additional exercises will be introduced and as well as a comprehensive home exercise program upon discharge, if needed, ?to ensure carryover of functional gains achieved in the clinic. This treatment plan has been reviewed and agreement upon by the patient.
--- NOTE | 2024-12-08 09:54 | PTOPDC ---
Assessment and note entered by Mara Benz DPT Evaluation Information Assessment Status Discharge Diagnosis m25.559, r10.30 ICD-10 Condition Codes (PT) Pain in left hip M25.552,Weakness R53.1,Pelvic and perineal pain R10.2,Stress incontinence N39.3 Subjective Information Highest pain in last week 7/10 and lowest 0/10. Worst pain is with walking long distance. Voiding approximately 5 times a day and 2-4 times at night . Does report trouble sleeping in general. Can hold urge 30 minutes, generally not wearing pads at all right now. Incontinence 2 times in the last month. Reported Pain Level Pain Score 0: Self Report Assessment PT Clinical Summary The patient has continued to make some pain in therapy and reports mild pain improvements, and some decreased frequency of nocturia and incontinence. She does continue to report her most pain after prolonged walking. Patient would like to continue HEP independently at this time and plans to follow up with MD soon. Plan of Care PT Services Indicated No
--- NOTE | 2024-12-08 09:54 | OPREHPOC ---
Outpatient Therapy Plan of Care This is a Multidisciplinary Plan of Care that may contain components documented by all disciplines (PT, OT, and ST.) PT Problem 1 PT Problem #1 Knowledge Deficit PT Goal 1 Goal / Goal Update 1. Patient will perform independent HEP Target Visit 3 Progress Met PT Problem 2 PT Problem #2 Pain PT Goal 1 Goal / Goal Update 1. Patient will report pain does not limit walking 2. Patient will perform typical activities with abdominal pain no higher than 3/10 3. No pain with pelvic exam and normal muscle tone update 11/17/24, 12/08/24 1. improved but not gone 2. 7/10 highest 3. no pain, still increased tone Target Visit 5 Progress Partially Met PT Problem 3 PT Problem #3 Impaired Strength PT Goal 1 Goal / Goal Update 1. Improve hip abduction to 5/5 isabella for gait without pain 2. Improve pelvic floor strength to 4/5 to reduce incontinence 3. Improve pelvic floor endurance to 10 seconds to reduce incontinence update 11/17/24 1. 4/5 isabella 2. no change 3. no change update 12/08/24 1. 4+/5 in all planes 2. not updated 3. not updated Target Visit 5 Progress Partially Met
== END 2024-12-08 16:18 | disposition home or self-care (01) ==
LOC: ANHGOSHPT 09:15
PROVIDERS: PCP Physician Assistant; Visit Provider Obstetrics & Gynecology
DX: M25.552 Pain in left hip (principal); R53.1 Weakness; R10.2 Pelvic and perineal pain; R10.30 Lower abdominal pain, unspecified; N39.3 Stress incontinence (female) (male); Z90.710 Acquired absence of both cervix and uterus
CPT/HCPCS: 97110; 97112; 97140; 97161; 97530

== ENCOUNTER 2025-03-03 10:21 | Outpatient (CLI) | payer MEDICARE, OTHER, SELFPAY ==
--- NOTE | ~2025-03-03 | DEXA_ITS ---
Bone Density Report Name: NICOLE LEONARDO Age: 69 Sex: Female Ethnicity: White Date of : 1955 Indication: postmenopausal; screening for osteoporosis; height loss; hysterectomy; Referring Provider: AMANDO TRIPP Study: Bone densitometry was performed. Exam Date: March 03, 2025 Accession number: [id number] Bone Density: Region BMD T-score Z-score Classification AP Spine(L1-L4) 1.013 -0.3 1.6 Normal Femoral Neck (Left) 0.704 -1.3 0.4 Osteopenia Total Hip (Left) 0.856 -0.7 0.7 Normal Femoral Neck (Right) 0.739 -1.0 0.7 Normal Total Hip (Right) 0.851 -0.7 0.6 Normal Total Hip Mean 0.854 -0.7 0.7 Normal World Health Organization criteria for BMD impression classify patients as: Normal (T-score at or above -1.0), Osteopenia (T-score between -1.0 and -2.5), or Osteoporosis (T-score at or below -2.5). 10-year Fracture Risk(1): Major Osteoporotic Fracture 9.0% Hip Fracture 0.9% Reported Risk Factors: [place] (), Neck BMD=0.704, BMI=28.4 (1) FRAX(R) Version 3.08. Fracture probability calculated for an untreated patient. Fracture probability may be lower if the patient has received treatment. Previous Exams: -- Region Exam Age BMD T-score BMD Change BMD Change Date g/cm2 vs Baseline vs Previous -- AP Spine (L1-L4) 03/03/2025 69 1.013 -0.3 -6.1%* -6.1%* 03/02/2023 67 1.079 0.3 Total Hip(Left) 03/03/2025 69 0.856 -0.7 -4.4%* -4.4%* 03/02/2023 67 0.896 -0.4 Total Hip(Right) 03/03/2025 69 0.851 -0.7 3.0% 3.0% 03/02/2023 67 0.826 -0.9 -- *Denotes significance at 95% confidence level, LSC for AP Spine = 0.022 g/cm2, LSC for Total Hip = 0.027 g/cm2 Clinical Information Provided by Patient: Has the following medical conditions: Hysterectomy Patient maximum height was 64 Menopause Age: 57 No regular weight bearing exercise Drinks caffeinated beverages Onset of menses at age 15 Number of children 2 Impression: The patient has low bone mass, based on the Left Femoral Neck T-score. The patient has an estimated ten-year risk of hip fracture of 0.9% and an estimated ten-year risk of major fracture of 9%, based on the WHO FRAX algorithm. The BMD for the AP Spine (L1-L4) decreased, changing by -6.1% since the last DXA exam. The BMD for the Total Hip(Left) decreased, changing by -4.4% since the last DXA exam. Discussion: BONE DENSITY IS LOW AT ONE OR MORE SKELETAL SITES. This patient's lowest T-score is low at one or more skeletal sites. It meets the World Health Organization's (WHO) criteria for ?low bone mass? (T-score between -1.0 and -2.5). The patient's 10-year risk of fracture as calculated by FRAX is less than the threshold where pharmacological therapy is recommended by the National Osteoporosis Foundation (NOF). However, all treatment decisions require clinical judgment and consideration of individual patient factors, including patient preferences, comorbidities, previous drug use, risk factors not captured in the FRAX model (e.g., frailty, falls, vitamin D deficiency, increased bone turnover, interval significant decline in bone density) and possible under or overestimation of fracture risk by FRAX. The patient should follow a healthful lifestyle (good nutrition with adequate calcium and vitamin D, and appropriate weight-bearing exercise). Follow-Up: Consider repeating this study in 2 years to reassess this patient's status, or sooner if there is some new clinical indication. Reported by: GLENROY on 03/03/2025 10:46:00 AM. Reviewed, dictated and finalized at location A.
== END 2025-03-03 10:22 | disposition home or self-care (01) ==
LOC: MICIMG 10:22
PROVIDERS: PCP Physician Assistant; Visit Provider Obstetrics & Gynecology
DX: Z78.0 Asymptomatic menopausal state (principal); M85.852 Other specified disorders of bone density and structure, left thigh
CPT/HCPCS: 77080